=== PATIENT | female | born 1975 | race Caucasian/White ===

== ENCOUNTER → 2020-03-31 | Outpatient (CLI) | payer OTHER ==
[2020-03-31 13:58] VITALS: BP 155/89; PULSE 80; RESP 16; TEMP 98.2; BMI 38.9
--- NOTE | 2020-03-31 14:28 | P.HPBAR ---
Bariatric H&P - History & Physicial H&P Date: 03/31/20 History & Physicial: Visit/CC: Initial Visit Patient initial contact: Initial weight: 104.411 kg Initial weight in pounds: 230.19 Height: 5 ft 4.5 in Initial BMI: 38.9 Last weight: Current weight: 104.411 kg Current weight in pounds: 230.19 Current BMI: 38.9 [place] body weight (based on NIH guidelines): 55.565 kg Excess body weight loss: 0.0% The patient is a 44 year-old F who presents for Bariatric Assessment. Patient presents today for sleeve gastrectomy consultation. She has had lifetime problems obesity. Patient is an excellent understanding of sleeve gastrectomy. She understood the risks and benefits of the procedure. Past Medical History Smoking Status: Current every day smoker Surgical - Exam Vital Signs Temp Pulse Resp BP 98.2 F 80 16 155/89 03/31/20 13:54 03/31/20 13:54 03/31/20 13:54 03/31/20 13:54 - General well developed, well nourished, no distress - Eyes PERRL - ENT normal pinna - Neck no masses - Respiratory normal expansion - Cardiovascular Rhythm: regular - Abdomen Abdomen: soft, non tender Bariatric Assessment & Plan Plan: Morbid obesity. Patient is scheduled for EGD. She'll follow-up in clinic after this is performed. Bariatric Checklist Checklist: Plan: Checklist: EGD: 1. Hiatal hernia: 2. H. Pylori: HgbA1c: Vitamin D: Smoking: Primary care physician referral: Psychiatry clearance: Cardiology clearance: Sleep study: Diet journal: VTE risk score: VTE risk level: Rehab needs at discharge:
== END | disposition home or self-care (01) ==
LOC: BARWHC3 13:30
PROVIDERS: ATTEND Surgery
DX: E66.01 Morbid (severe) obesity due to excess calories (principal); Z68.38 Body mass index [BMI] 38.0-38.9, adult
CPT/HCPCS: 99201

== ENCOUNTER 2020-05-22 15:02 | Emergency (ER) | payer OTHER ==
[2020-05-22 15:12] VITALS: RESP 18
[2020-05-22] MEDS ORDERED: LORazepam 1 MG TAB PO STA (15:24)
--- NOTE | 2020-05-22 15:30 | ED ---
Allergic Reaction HPI - General Source: patient Mode of arrival: ambulatory Limitations: no limitations <Soraya Crowe - Last Filed: 05/22/20 21:17> <Jennifer Conley - Last Filed: 05/27/20 14:39> - General Chief complaint: Allergic Reaction Stated complaint: Allergic reaction Time Seen by Provider: 05/22/20 15:13 - History of Present Illness Initial Comments: 44-year-old female presents today for chief complaint of mood changes. Patient states she has been on hormone placement for estrogen for the past 6 months. Patient states she did believe she is on a low dose. Patient states she recently began Chantix and Adipex--within the last 3-4 weeks she states that she has noticed significant mood changes. She states she becomes angry for no reason she states she cries the drop of a hat. Patient staets she is not suicidal, homicidal she does not wish to hurt anyone. Patient was not sure if this was related to the Chantix and Adipex or the estrogen and presented to the ER for further evaluation. Patient states she does not want psychiatric evaluation. Patient denies any chest pain short of breath and leg swelling calf pain she denies any chest pain pressure she states she has no physical symptoms and is all emotional Sandi review of system negative upon arrival patient appears nontoxic no acute distress she denies any lip tongue swelling she denies any physical hives, fevers. (Soraya Crowe) - Related Data Home Medications Medication Instructions Recorded Confirmed Aspirin 81 mg PO DAILY 04/01/20 05/20/20 Fish Oil/Dha/Epa [Fish Oil 1,200 2,400 mg PO DAILY 04/01/20 05/20/20 mg Fish Oil] Acetaminophen [Tylenol] 325 - 650 mg PO DIRECTED PRN 05/20/20 05/20/20 Cetirizine HCl [Zyrtec] 10 mg PO DAILY PRN 05/20/20 05/20/20 Cholecalciferol [Vitamin D3 (25 50 mcg PO DAILY 05/20/20 05/20/20 Mcg = 1000 Iu)] Estrogens, Conjugated [Premarin] 0.45 mg PO DAILY 05/20/20 05/20/20 Mv,Calcium,Min/Iron/Folic/Vitk 1 each PO DAILY 05/20/20 05/20/20 [One-A-Day Women's Complete Tab] Phentermine HCl [Adipex-P] 37.5 mg PO DAILY 05/20/20 05/20/20 Varenicline [Chantix Starter Pack] 0.5 mg PO BID 05/20/20 05/20/20 Previous Rx's Medication Instructions Recorded ALPRAZolam [Xanax] 0.5 mg PO HS PRN 3 Days #3 tab 05/22/20 Allergies Allergy/AdvReac Type Severity Reaction Status Date / Time No Known Allergies Allergy Verified 05/22/20 15:13 Review of Systems ROS Other: All systems not noted in ROS Statement are negative. <Soraya Crowe - Last Filed: 05/22/20 21:17> ROS Other: All systems not noted in ROS Statement are negative. <Jennifer Conley - Last Filed: 05/27/20 14:39> ROS Statement: Those systems with pertinent positive or pertinent negative responses have been documented in the HPI. Past Medical History Past Medical History: GERD/Reflux Additional Past Medical History / Comment(s): Sinus problems lately. History of Any Multi-Drug Resistant Organisms: None Reported Past Surgical History: Cholecystectomy, Hysterectomy Additional Past Surgical History / Comment(s): Colonoscopy Past Anesthesia/Blood Transfusion Reactions: Previous Problems w/ Anesthesia Additional Past Anesthesia/Blood Transfusion Reaction / Comment(s): Took longer to awaken, grabbing at IV and O2 w/ last surgery. Past Psychological History: No Psychological Hx Reported Smoking Status: Former smoker - Past Family History Mother Family Medical History: No Reported History <Soraya Crowe - Last Filed: 05/22/20 21:17> General Exam Limitations: no limitations <Soraya Crowe - Last Filed: 05/22/20 21:17> - General Exam Comments Initial Comments: General: The patient is awake and alert, in no distress, and does not appear acutely ill. Eye: Pupils are equal, round and reactive to light, extra-ocular movements are intact. No nystagmus. There is normal conjunctiva bilaterally. No signs of icterus. Ears, nose, mouth and throat: There are moist mucous membranes and no oral lesions. No lip tongue swelling Neck: The neck is supple, there is no tenderness or JVD. Cardiovascular: There is a regular rate and rhythm. No murmur, rub or gallop is appreciated. Respiratory: Lungs are clear to auscultation, respirations are non-labored, breath sounds are equal. No wheezes, stridor, rales, or rhonchi. Gastrointestinal: Soft, non-distended, non-tender abdomen without masses or organomegaly noted. There is no rebound or guarding present. Musculoskeletal: Normal ROM, no tenderness. Strength 5/5. Sensation intact. Pulses equal bilaterally 2+. Neurological: A&O x 3. CN II-XII intact, There are no obvious motor or sensory deficits. Coordination appears grossly intact. Speech is normal. Skin: Skin is warm and dry and no rashes or lesions are noted. No urticaria Psychiatric: Cooperative, appropriate mood & affect, normal judgment. (Soraya Crowe) Course Vital Signs 05/22/20 05/22/20 15:08 16:30 Temperature 98.7 F 98 F Pulse Rate 94 83 Respiratory 18 18 Rate Blood Pressure 131/91 136/99 O2 Sat by Pulse 99 97 Oximetry Medical Decision Making <Soraya Crowe - Last Filed: 05/22/20 21:17> <Jennifer Conley - Last Filed: 05/27/20 14:39> - Medical Decision Making Patient presenting for emotional reaction from medications. No signs of anaphylaxis no urticaria no lip tongue swelling. I recommended discontinue Chantix as well as Adipex. Patient is to discuss discontinuation of estrogen with her OSTEOLOGY TEACHER on Tuesday or changing to a possible topical regimen patient otherwise denies suicidal or homicidal ideation she does not appear acutely psychotic she refuses psychiatric evaluation. Patient is provided anxiolytics and is agreeable to discharge at this time> Case discussed with Dr. Conley who is agreeable to this care plan. (Soraya Crowe) I was available for consultation in the emergency department. The history and physical exam were done by the midlevel provider. I was consulted for this patients care. I reviewed the case with the midlevel provider and based on their presentation of the patient, I agree with the assessment, medical decision making and plan of care as documented. Chart was dictated using [employer] dictation software. Attempts were made to correct any dictation errors however some typographical errors may persist. Patient was seen during a national state of emergency due to the Covid-19 pandemic. (Jennifer Conley) Disposition Is patient prescribed a controlled substance at d/c from ED?: No Time of Disposition: 15:30 <JevongraceSoraya Graeme - Last Filed: 05/22/20 21:17> <DevaughncharlieJennifer Chuy - Last Filed: 05/27/20 14:39> Clinical Impression: Mood changes Disposition: HOME SELF-CARE Condition: Good Instructions (If sedation given, give patient instructions): Anxiety (ED) Additional Instructions: Please use medication as discussed. Please follow-up with family doctor in the next 2 days, discontinue chantix and the adipex please. Discussed changing estrogen replacement therapy with Dr. Galindo on Tuesday call office first thing. Return for homicidal, suicidal ideations or increased mood changes as discussed. Please return to emergency room if the symptoms increase or worsen or for any other concerns. Prescriptions: ALPRAZolam [Xanax] 0.5 mg PO HS PRN 3 Days #3 tab PRN Reason: Anxiety Referrals: Enrike Dugan MD [Primary Care Provider] - 1-2 days Martinez Galindo DO [REFERRING] - 1-2 days
[2020-05-22 16:31] VITALS: BP 136/99; PULSE 83; TEMP 98
== END 2020-05-22 16:30 | disposition home or self-care (01) ==
LOC: EC 15:02
DX: R45.86 Emotional lability (principal); T50.5X5A Adverse effect of appetite depressants, initial encounter; T44.995A Adverse effect of other drug primarily affecting the autonomic nervous system, initial encounter; Z87.891 Personal history of nicotine dependence; Z79.890 Hormone replacement therapy; F39 Unspecified mood [affective] disorder
CPT/HCPCS: 99283

== ENCOUNTER → 2020-12-29 | Outpatient (CLI) | payer BC, OTHER ==
[2020-12-29 15:23] VITALS: BP 142/87; PULSE 72; TEMP 98.2; BMI 45.8
[2020-12-29 15:54] LABS: HCT 39.6 % (34.0-46.0); MCH 30.6 pg (25.0-35.0); MCHC 32.8 g/dL (31.0-37.0); MCV 93.4 fL (80.0-100.0); Mean Platelet Volume 7.9; Platelet Count 198 k/uL (150-450); RBC 4.24 m/uL (3.80-5.40); RDW 12.3 % (11.5-15.5); WBC 6.6 k/uL (3.8-10.6)
--- NOTE | 2020-12-29 16:22 | P.HPBAR ---
Bariatric H&P - History & Physicial H&P Date: 12/29/20 History & Physicial: Visit/CC: new patient visit Patient initial contact: Initial weight: 104.411 kg Initial weight in pounds: 230.19 Height: 5 ft Initial BMI: 44.9 Last weight: Current weight: 106.594 kg Current weight in pounds: 235.00 Current BMI: 45.8 [place] body weight (based on NIH guidelines): 45.359 kg Excess body weight loss: The patient is a 45 year-old F who presents for Bariatric Assessment. Patient presents today for a surgical consultation. She is interested sleeve gastric. Patient presents BMI 46. She has an excellent understanding significantly. Past Medical History Past Medical History: GERD/Reflux Additional Past Medical History / Comment(s): Sinus problems lately. History of Any Multi-Drug Resistant Organisms: None Reported Past Surgical History: Cholecystectomy, Hysterectomy Additional Past Surgical History / Comment(s): Colonoscopy Past Anesthesia/Blood Transfusion Reactions: Previous Problems w/ Anesthesia Additional Past Anesthesia/Blood Transfusion Reaction / Comm: Took longer to awaken, grabbing at IV and O2 w/ last surgery. Past Psychological History: No Psychological Hx Reported Smoking Status: Current some day smoker Past Alcohol Use History: Occasional Additional Past Alcohol Use History / Comment(s): Quit smoking 04/28/20, began at age 16, was 1 pack per wk avg. Drinks 6-12 drinks on weekends. Past Drug Use History: None Reported - Past Family History Mother Family Medical History: No Reported History Surgical - Exam Vital Signs Temp Pulse BP 98.2 F 72 142/87 12/29/20 15:20 12/29/20 15:20 12/29/20 15:20 - General well developed, well nourished, no distress - Eyes PERRL - ENT normal pinna - Neck no masses - Respiratory normal expansion - Cardiovascular Rhythm: regular - Abdomen Abdomen: soft, non tender Results - Labs 12/29/20 15:41 Bariatric Assessment & Plan Plan: RBC. Patient's BMI is 46. Patient was scheduled for EGD. Bariatric Checklist Checklist: Plan: Checklist: EGD: 1. Hiatal hernia: 2. H. Pylori: HgbA1c: Vitamin D: Smoking: Primary care physician referral: Psychiatry clearance: Cardiology clearance: Sleep study: Diet journal: VTE risk score: VTE risk level: Rehab needs at discharge:
[2020-12-30 18:28] LABS: ALT 36 U/L (8-44); AST 22 U/L (13-35); African American GFR (CKD) 141.1 (60.0-200.0); Albumin 4.3 g/dL (3.8-4.9); Albumin/Globulin Ratio 2.03 (1.60-3.17); Alkaline Phosphatase 118 U/L (41-126); BUN/Creat Ratio 31.93 Ratio (12.00-20.00); Blood Urea Nitrogen 14.4 mg/dL (9.0-27.0); Calcium 9.9 mg/dL (8.7-10.3); Carbon Dioxide 20.2 mmol/L (21.6-31.8); Chloride 105 mmol/L (96-109); Globulin 2.1 g/dL (1.6-3.3); Glucose 118 mg/dL (70-110); Non-African American GFR(CKD) 121.8 (60.0-200.0); Potassium 4.6 mmol/L (3.5-5.5); Sodium 143 mmol/L (135-145); Total Bilirubin <0.20 mg/dL (0.30-1.20); Total Protein 6.4 g/dL (6.2-8.2)
== END ==
LOC: BARWHC3 14:43
PROVIDERS: ATTEND Surgery
DX: Z01.818 Encounter for other preprocedural examination (principal); Z87.891 Personal history of nicotine dependence
CPT/HCPCS: 80053; 82306; 82607; 82746; 83036; 84425; 85027; 93005; 99211

== ENCOUNTER → 2021-02-02 | Outpatient (CLI) | payer BC ==
[2021-02-02 12:46] VITALS: BMI 46.8
== END ==
LOC: BARWHC3 08:41
PROVIDERS: ATTEND Surgery
DX: E66.01 Morbid (severe) obesity due to excess calories (principal); Z71.3 Dietary counseling and surveillance; Z68.42 Body mass index [BMI] 45.0-49.9, adult
CPT/HCPCS: 97804

== ENCOUNTER 2021-02-05 09:23 | Day surgery (SDC) | payer BC ==
[2021-02-02 16:19] VITALS: BMI 41.5
[~2021-02-05 09:23] MED LIST: LACTATED RINGERS 1,000 ML IV SCH; LIDOCAINE 1% (10MG/ML) FOR IV START INTRADERMA PRN
[2021-02-05 10:38] VITALS: TEMP 97.2
[2021-02-05] MEDS ORDERED: PROPOFOL 10 MG/ML 20 ML VIAL IV ONE (11:30)
--- NOTE | 2021-02-05 11:33 | P.GSHP ---
History of Present Illness H&P Date: 02/05/21 Chief Complaint: GERD, morbid obesity This is a 41-year-old female who presents today for EGD. She's had issues with GERD. She is undergoing workup for sleeve gastrectomy Past Medical History Past Medical History: GERD/Reflux, Hyperlipidemia Additional Past Medical History / Comment(s): Sinus problems occasionally. Acid reflux resolved since gallbladder taken out. History of Any Multi-Drug Resistant Organisms: None Reported Past Surgical History: Cholecystectomy, Hysterectomy Additional Past Surgical History / Comment(s): Colonoscopy. Past Anesthesia/Blood Transfusion Reactions: Previous Problems w/ Anesthesia Additional Past Anesthesia/Blood Transfusion Reaction / Comment(s): Took longer to awaken, grabbing at IV and O2 w/ last surgery. Past Psychological History: Anxiety Smoking Status: Current some day smoker Past Alcohol Use History: Occasional Additional Past Alcohol Use History / Comment(s): Quit smoking 04/28/20, began at age 16, was 1 pack per wk avg. Now smokes a cigarette some days. Drinks 6-12 drinks on weekends. Past Drug Use History: None Reported - Past Family History Mother Family Medical History: No Reported History Medications and Allergies Home Medications Medication Instructions Recorded Confirmed Type Aspirin 81 mg PO DAILY 04/01/20 02/02/21 History Fish Oil/Dha/Epa [Fish Oil 1,200 2,400 mg PO DAILY 04/01/20 02/02/21 History mg Fish Oil] Cholecalciferol [Vitamin D3 (25 50 mcg PO DAILY 05/20/20 02/02/21 History Mcg = 1000 Iu)] Mv,Calcium,Min/Iron/Folic/Vitk 1 each PO DAILY 05/20/20 02/02/21 History [One-A-Day Women's Complete Tab] Allergies Allergy/AdvReac Type Severity Reaction Status Date / Time No Known Allergies Allergy Verified 02/02/21 16:08 Surgical - Exam Vital Signs Temp Pulse Resp BP Pulse Ox 97.2 F L 73 20 144/89 97 02/05/21 10:35 02/05/21 10:35 02/05/21 10:35 02/05/21 10:35 02/05/21 10:35 - General well developed, well nourished, no distress - Eyes PERRL - ENT normal pinna - Neck no masses - Respiratory normal expansion - Cardiovascular Rhythm: regular - Abdomen Abdomen: soft, non tender Assessment and Plan Assessment: GERD, morbid obesity BMI 42. We'll perform EGD
--- NOTE | 2021-02-05 11:40 | P.OP ---
Date of Procedure: 02/05/21 Preoperative Diagnosis: GERD Morbid obesity Postoperative Diagnosis: Gastritis Morbid obesity Procedure(s) Performed: EGD Anesthesia: MAC Surgeon: Yoel Ortiz Pathology: other (Antrum) Condition: stable Disposition: PACU Description of Procedure: The patient's placed on the endoscopy table in the lateral position. She received IV sedation. The gastroscope placed oropharynx passed in the esophagus and stomach. Scope was then placed through the pylorus. The first and second portion duodenum appeared normal. Scope summer back the antrum this. Mildly inflamed. A biopsies performed. The scope was then retroflexed and the remainder of the stomach appeared normal. There is no significant hiatal hernia. The GE junction was at 40 cm per the distal esophagus appeared normal. The proximal esophagus. Normal. Scope was withdrawn for patient.
[2021-02-05 11:50] VITALS: RESP 16
[2021-02-05 12:17] VITALS: BP 133/84; PULSE 73
== END 2021-02-05 12:37 | disposition home or self-care (01) ==
LOC: ORWHC2ENDO 09:23
PROVIDERS: ATTEND Surgery
DX: K29.50 Unspecified chronic gastritis without bleeding (principal); K21.9 Gastro-esophageal reflux disease without esophagitis; E66.01 Morbid (severe) obesity due to excess calories; E78.5 Hyperlipidemia, unspecified; F17.210 Nicotine dependence, cigarettes, uncomplicated; Z68.41 Body mass index [BMI] 40.0-44.9, adult; Z79.82 Long term (current) use of aspirin; Z90.49 Acquired absence of other specified parts of digestive tract
CPT/HCPCS: 43239; 88305; J2704

== ENCOUNTER → 2021-05-04 | Outpatient (CLI) | payer BC ==
[2021-05-04 14:02] VITALS: BP 133/93; PULSE 87; TEMP 98; BMI 47.5
--- NOTE | 2021-05-04 14:31 | P.HPBAR ---
Bariatric H&P - History & Physicial H&P Date: 05/04/21 History & Physicial: Visit/CC: pre op visit Patient initial contact: Initial weight: 104.411 kg Initial weight in pounds: 230.19 Height: 5 ft Initial BMI: 44.9 Last weight: Current weight: 110.223 kg Current weight in pounds: 243.00 Current BMI: 47.5 [place] body weight (based on NIH guidelines): 45.359 kg Excess body weight loss: The patient is a 45 year-old F who presents for Bariatric Assessment. Patient presents today for presurgical consultation. She has been just recently approved for gastric sleeve procedure. She is morbidly obese. BMI is 48. Past Medical History Past Medical History: GERD/Reflux Additional Past Medical History / Comment(s): Sinus problems lately. History of Any Multi-Drug Resistant Organisms: None Reported Past Surgical History: Cholecystectomy, Hysterectomy Additional Past Surgical History / Comment(s): Colonoscopy Past Anesthesia/Blood Transfusion Reactions: Previous Problems w/ Anesthesia Additional Past Anesthesia/Blood Transfusion Reaction / Comm: Took longer to awaken, grabbing at IV and O2 w/ last surgery. Past Psychological History: No Psychological Hx Reported Smoking Status: Current some day smoker Past Alcohol Use History: Occasional Additional Past Alcohol Use History / Comment(s): Quit smoking 04/28/20, began at age 16, was 1 pack per wk avg. Drinks 6-12 drinks on weekends. Past Drug Use History: None Reported - Past Family History Mother Family Medical History: No Reported History Surgical - Exam Vital Signs Temp Pulse BP 98 F 87 133/93 05/04/21 13:56 05/04/21 13:56 05/04/21 13:56 - General well developed, well nourished, no distress - Eyes PERRL - ENT normal pinna - Neck no masses - Respiratory normal expansion - Cardiovascular Rhythm: regular - Abdomen Abdomen: soft, non tender Bariatric Assessment & Plan Plan: Morbid obesity, BMI 48. Patient is an excellent understanding of sleeve gastrectomy. She is aware the risks and benefits of the procedure. She is well-dressed gastric staple line bleeding, perforation and scarring. All questions were answered. Bariatric Checklist Checklist: Plan: Checklist: EGD: 1. Hiatal hernia: 2. H. Pylori: HgbA1c: Vitamin D: Smoking: Primary care physician referral: Psychiatry clearance: Cardiology clearance: Sleep study: Diet journal: VTE risk score: VTE risk level: Rehab needs at discharge:
== END ==
LOC: BARWHC3 13:09
PROVIDERS: ATTEND Surgery
DX: E66.01 Morbid (severe) obesity due to excess calories (principal); F17.210 Nicotine dependence, cigarettes, uncomplicated; Z68.42 Body mass index [BMI] 45.0-49.9, adult
CPT/HCPCS: 99211

== ENCOUNTER 2021-05-18 07:39 | Observation (INO) | payer BC ==
[~2021-05-18 07:39] MED LIST changes: +ENOXAPARIN 40 MG/0.4 ML SYRINGE SQ PRN; -LACTATED RINGERS 1,000 ML IV SCH; -LIDOCAINE 1% (10MG/ML) FOR IV START INTRADERMA PRN
[2021-05-18] MEDS ORDERED: ONDANSETRON 4 MG/2 ML VIAL IVP ONE (08:12)
[2021-05-18] MEDS ORDERED: LIDOCAINE 1% (10MG/ML) FOR IV START INTRADERMA PRN (08:12)
[2021-05-18] MEDS ORDERED: DEXAMETHASONE SOD PHOSPHATE 4 MG/ML 1 ML VIAL IV ONE (08:12)
[2021-05-18] MEDS ORDERED: SCOPOLAMINE 1.5MG/72HR PATCH TRANSDERM ONE (08:12)
[2021-05-18] MEDS ORDERED: LACTATED RINGERS 1,000 ML IV ONE ×2 (08:28→10:19)
[2021-05-18] MEDS ORDERED: MIDAZOLAM 2 MG/2 ML VIAL IVP ONE (08:35)
--- NOTE | 2021-05-18 09:16 | P.GSHP ---
History of Present Illness H&P Date: 05/18/21 Chief Complaint: Morbid obesity This is a 45-year-old female who presents today for sleeve gastrectomy. Patient has a lifetime problems morbid obesity. BMI is 39. Patient is aware the risks of surgery including conversion to the open procedure and injury to the stomach liver or spleen. He also aware the risk of gastric staple line disruption bleeding and scarring. Past Medical History Past Medical History: GERD/Reflux, Hyperlipidemia Additional Past Medical History / Comment(s): Sinus problems, History of Any Multi-Drug Resistant Organisms: None Reported Past Surgical History: Cholecystectomy, Hysterectomy Additional Past Surgical History / Comment(s): Colonoscopy Past Anesthesia/Blood Transfusion Reactions: Previous Problems w/ Anesthesia Additional Past Anesthesia/Blood Transfusion Reaction / Comment(s): Took longer to awaken, grabbing at IV and O2 w/ last surgery. Smoking Status: Former smoker - Past Family History Mother Family Medical History: No Reported History Medications and Allergies Home Medications Medication Instructions Recorded Confirmed Type No Known Home Medications 05/13/21 05/18/21 History Allergies Allergy/AdvReac Type Severity Reaction Status Date / Time liraglutide [From Saxenda] Allergy Itching Verified 05/18/21 08:10 varenicline [From Chantix] Allergy Itching Verified 05/18/21 08:10 Surgical - Exam Vital Signs Temp Pulse Resp BP Pulse Ox 97.2 F L 77 15 136/63 97 05/18/21 08:16 05/18/21 08:16 05/18/21 08:16 05/18/21 08:16 05/18/21 08:16 - General well developed, well nourished, no distress - Eyes PERRL - ENT normal pinna - Neck no masses - Respiratory normal expansion - Cardiovascular Rhythm: regular - Abdomen Abdomen: soft, non tender Assessment and Plan Assessment: Morbid obesity. We'll perform laparoscopic sleeve gastrectomy.
[2021-05-18] MEDS ORDERED: SUCCINYLCHOLINE CHLORIDE 100 MG/5 ML SYR IV ONE (09:30)
[2021-05-18] MEDS ORDERED: MIDAZOLAM 2 MG/2 ML VIAL ONE (09:30)
[2021-05-18] MEDS ORDERED: NEOSTIGMINE 1 MG/ML 10 ML VIAL ONE (09:30)
[2021-05-18] MEDS ORDERED: LIDOCAINE 1% INJ 10MG/ML (20 ML MDV) ONE (09:30)
[2021-05-18] MEDS ORDERED: KETAMINE 10 MG/ML 20 ML VIAL ONE (09:30)
[2021-05-18] MEDS ORDERED: GLYCOPYRROLATE 0.2 MG/ML 2 ML VIAL ONE (09:30)
[2021-05-18] MEDS ORDERED: ROCURONIUM 10 MG/ML (5 ML VIAL) IV ONE (09:30)
[2021-05-18] MEDS ORDERED: PROPOFOL 10 MG/ML 20 ML VIAL IV ONE (09:30)
[2021-05-18] MEDS ORDERED: fentaNYL (PF) 50 MCG/ML 2 ML AMP ONE (09:30)
[2021-05-18] MEDS ORDERED: HYDROmorphone (PF) 1 MG/ML ONE (09:30)
[2021-05-18] MEDS ORDERED: BUPIVACAINE (PF) 0.25% 30 ML VIAL SQ ONE (10:07)
[2021-05-18] MEDS ORDERED: NALOXONE 0.4 MG/ML 1 ML VIAL IV PRN (10:52)
[2021-05-18] MEDS ORDERED: HYDROmorphone 1 MG/ML 1 ML SYRINGE IVP PRN (10:52)
--- NOTE | 2021-05-18 10:52 | P.OP ---
Date of Procedure: 05/18/21 Preoperative Diagnosis: Morbid obesity, BMI 39 Postoperative Diagnosis: Morbid obesity, BMI 39 Procedure(s) Performed: Laparoscopic sleeve gastrectomy Anesthesia: JERRICA Surgeon: Yoel Ortiz Estimated Blood Loss (ml): 5 Pathology: other (Stomach) Condition: stable Disposition: PACU Description of Procedure: The patient was placed on the operating room table in the supine position. She received general anesthesia and then was placed in dorsal lithotomy position. Her abdomen was prepped and draped in sterile fashion. The skin incision sites were anesthetized 1% local Xylocaine. And then the skin was incised with an 11 blade in the left lateral position. Using a blade less trocar under direct visualization the peritoneal cavity was entered. The abdomen was insufflated and then a 5 mm laparoscope was placed into the peritoneal cavity. A 5 mm trocar was placed in the right epigastric, and right lateral position. A 15 mm trocar was placed in the supra-umbilical position and another 5 mm trocar was placed in the left lateral position. The left lateral lobe of the liver was retracted. The stomach was visualized. The greater curvature of the stomach was then dissected using the Harmonic scissors. The dissection occurred approximately 5 cm from the pylorus to the level of the left juancarlos. There was no hiatal hernia seen. At this point a 40-Fijian bougie dilator was placed the oropharynx and passed into the esophagus and into the stomach by the COUNSELLING PSYCHOLOGIST. The sleeve gastrectomy was performed by using the powered echelon stapler with a seam guard buttress material. Sequential firings of the stapler were performed. The gastric remnant was then brought out through the 15 mm trocar site. The dilator was withdrawn. And a orogastric tube was replaced into the stomach. The stomach was insufflated with 200 mL of methylene blue normal saline. There was no evidence of extravasation. The abdomen was irrigated there is no bleeding seen. The Brandon-Prashant device was used to close the 15 mm trocar with 0 Vicryl. Skin was closed with interrupted 3-0 Monocryl sutures once the trochars withdrawn. Dermabond dressing was applied. Patient was sent to recovery in stable condition.
[2021-05-18] MEDS ORDERED: HYDROmorphone 0.5 MG/0.5 ML SYRINGE IVP ONE ×2 (11:09→11:44)
[2021-05-18] MEDS: KETOROLAC 30 MG/ML 1 ML VIAL IVP SCH ×2 (12:40→18:08)
--- NOTE | 2021-05-18 15:00 | P.CONS ---
<Jong Cervantes - Last Filed: 05/18/21 15:10> History of Present Illness - Reason for Consult Consult date: 05/18/21 - History of Present Illness History of Presenting Illness: Patient is a very pleasant 45-year-old female with past medical history of morbid obesity with BMI of 39.3 kg/m, hyperlipidemia, and GERD. Surgical history consists of hysterectomy and cholecystectomy. Patient is currently admitted under Gen. surgery team and is status post laparoscopic sleeve gastrectomy completed by Dr. Ortiz. We have been consulted to provide continued medical management throughout patient's hospitalization. Patient seen and fully evaluated upon arrival to room 460 from postop. Patient appears to be doing well. Reports mild to moderate pain. She is tolerating oral intake of ice chips. Patient denies having any headache, lightheadedness, dizziness, chest pain, palpitations, or shortness of breath. She has not had any postoperative nausea or vomiting. Patient states she has not yet urinated since surgical procedure. Patient denies being on any daily medications, she reports diet control for treatment of hyperlipidemia and GERD. Review of systems: Pertinent positives and negatives as discussed in HPI, a complete review of sy stems was performed and all other systems are negative. Physical exam: Vital signs reviewed and stable. General: Nontoxic, no distress and appears stated age. Derm: Skin warm and dry, normal coloration for ethnicity. Head: Atraumatic, normocephalic and symmetric. Eyes: EOMs intact, no lid lag, and anicteric sclera Mouth: no lip lesions, mucus membranes moist Cardiovascular: regular rate and rhythm with normal S1S2, no murmur, positive posterior tibial pulses bilaterally, and cap refill < 2 seconds. Lungs: Respirations even, regular, and unlabored on room air. Lungs CTA bilaterally, no rhonchi, no rales, no wheezing, and no accessory muscle usage. Abdominal: soft, nontender to palpation, no guarding, no appreciable organomegaly Ext: ROM intact. No gross muscle atrophy, no edema, no contractures Neuro: Speech clear, face symmetrical and CN II-XII grossly intact with no noted focal neuro deficits Psych: Alert and oriented to person, place, time, and situation. Appropriate and pleasant affect. Assessment and Plan of Care: Status post laparoscopic sleeve gastrectomy -Management per primary admitting general surgery team including pain management, DVT prophylaxis, and advancement of diet. -DVT prophylaxis currently with Lovenox 40 mg daily. -We will follow up with morning labs. GERD -GI prophylaxis with Protonix 40 mg IVP daily. Hyperlipidemia -Recommend following a heart healthy diet once cleared for diet to advance by general surgery Thank you for allowing us to participate in the care of this pleasant patient. Do not hesitate to contact us with questions. Someone can be reached from the [facility] hospitalist group all hours of the day at [phone] or via [employer]. Past Medical History Past Medical History: GERD/Reflux, Hyperlipidemia Additional Past Medical History / Comment(s): Sinus problems, History of Any Multi-Drug Resistant Organisms: None Reported Past Surgical History: Cholecystectomy, Hysterectomy Additional Past Surgical History / Comment(s): Colonoscopy Past Anesthesia/Blood Transfusion Reactions: Previous Problems w/ Anesthesia Additional Past Anesthesia/Blood Transfusion Reaction / Comm: Took longer to awaken, grabbing at IV and O2 w/ last surgery. Smoking Status: Former smoker - Past Family History Mother Family Medical History: No Reported History Medications and Allergies Home Medications Medication Instructions Recorded Confirmed Type No Known Home Medications 05/13/21 05/18/21 History Allergies Allergy/AdvReac Type Severity Reaction Status Date / Time liraglutide [From Saxenda] Allergy Itching Verified 05/18/21 08:10 varenicline [From Chantix] Allergy Itching Verified 05/18/21 08:10 Physical Exam Vitals: Vital Signs Temp Pulse Pulse Resp BP BP Pulse Ox 05/18/21 13:45 99 16 132/70 95 05/18/21 13:15 91 16 147/70 95 05/18/21 13:01 102 H 16 105/74 95 05/18/21 12:45 100 16 138/64 95 05/18/21 12:30 102 H 16 145/67 95 05/18/21 12:15 92 16 136/85 95 05/18/21 12:00 98 16 161/83 93 L 05/18/21 11:45 92 14 133/71 96 05/18/21 11:30 95 14 164/77 100 05/18/21 11:15 97 14 157/70 100 05/18/21 10:56 97.5 F L 87 14 161/70 92 L 05/18/21 08:16 97.2 F L 77 15 136/63 97 Intake and Output 05/17/21 05/18/21 05/18/21 22:59 06:59 14:59 Intake Total 1999 Output Total 10 Balance 1989 Intake: IV 1999 Output: Estimated Blood Loss 10 Other: Weight 103.8 kg <Perla Schreiber - Last Filed: 05/18/21 16:34> History of Present Illness - History of Present Illness I reviewed the documentation as provided by the MORGAN above, who is the original author of this note. I agree with the documented assessment and plan, with the following changes: None Physical Exam Osteopathic Statement: *. No significant issues noted on an osteopathic structural exam other than those noted in the History and Physical/Consult. Vitals: Vital Signs Temp Pulse Pulse Resp BP BP Pulse Ox 05/18/21 13:45 99 16 132/70 95 05/18/21 13:15 91 16 147/70 95 05/18/21 13:01 102 H 16 105/74 95 05/18/21 12:45 100 16 138/64 95 05/18/21 12:30 102 H 16 145/67 95 05/18/21 12:15 92 16 136/85 95 05/18/21 12:00 98 16 161/83 93 L 05/18/21 11:45 92 14 133/71 96 05/18/21 11:30 95 14 164/77 100 05/18/21 11:15 97 14 157/70 100 05/18/21 10:56 97.5 F L 87 14 161/70 92 L 05/18/21 08:16 97.2 F L 77 15 136/63 97 Intake and Output 05/18/21 05/18/21 05/18/21 06:59 14:59 22:59 Intake Total 1999 Output Total 10 1989 Intake: IV 1999 Output: Estimated Blood Loss 10 Other: Weight 103.8 kg
[2021-05-18] MEDS: LACTATED RINGERS 1,000 ML IV SCH (16:33)
[2021-05-18] MEDS: ALBUTEROL NEBULIZED 2.5 MG/3 ML INHALATION SCH ×3 (16:33→22:13)
[2021-05-18] MEDS: 0.9% NACL WITH KCL 20 MEQ/L 1,000 ML IV SCH ×2 (18:09→22:01)
[2021-05-19] MEDS: KETOROLAC 30 MG/ML 1 ML VIAL IVP SCH ×2 (00:08→04:47)
[2021-05-19] MEDS ORDERED: HYOSCYAMINE ORAL DROPS 1.875 MG/15 ML BOTTLE PO PRN (04:46)
[2021-05-19] MEDS: 0.9% NACL WITH KCL 20 MEQ/L 1,000 ML IV SCH ×2 (04:48→15:43)
[2021-05-19] MEDS ORDERED: ONDANSETRON 4 MG/2 ML VIAL IVP PRN (07:35)
[2021-05-19] MEDS: ENOXAPARIN 40 MG/0.4 ML SYRINGE SQ SCH (07:42)
[2021-05-19] MEDS: ALBUTEROL NEBULIZED 2.5 MG/3 ML INHALATION SCH ×4 (08:27→20:12)
[2021-05-19] MEDS ORDERED: PANTOPRAZOLE 40 MG/10 ML VIAL IV SCH (09:00)
[2021-05-19 09:07] LABS: Basophils # (A) 0.01 X 10*3/uL (0.00-0.10); Basophils % (A) 0.1 %; Eosinophils # (A) 0 X 10*3/uL (0.04-0.35); Eosinophils % (A) 0 %; Immature Grans, Automated 0.3 %; Lymphocytes # (A) 1.57 X 10*3/uL (0.90-5.00); MCH 28.5 pg (27.0-32.0); MCHC 31.6 g/dL (32.0-37.0); MCV 90.3 fL (80.0-97.0); Mean Platelet Volume 11.8 fL (9.5-12.2); Monocytes # (A) 0.54 X 10*3/uL (0.20-1.00); Monocytes % (A) 7.2 %; NRBC Per 100 WBC 0 /100 WBCS (0.0-0.0); Neutrophils # (A) 5.33 X 10*3/uL (1.80-7.70); Neutrophils % (A) 71.4 %; Platelet Count 178 X 10*3/uL (140-440); RBC 4.21 X 10*6/uL (4.10-5.20); RDW 12.5 % (11.5-14.5); WBC 7.47 X 10*3/uL (4.50-10.00)
[2021-05-19 09:21] LABS: African American GFR (CKD) 122.1 (60.0-200.0); Anion Gap 15.3 mmol/L (10.00-18.00); Blood Urea Nitrogen 8.7 mg/dL (9.0-27.0); Calcium 8.6 mg/dL (8.7-10.3); Carbon Dioxide 18.7 mmol/L (20.0-27.5); Non-African American GFR(CKD) 105.4 (60.0-200.0); Phosphorus 2.7 mg/dL (2.4-5.1); Potassium 4.6 mmol/L (3.5-5.5)
[2021-05-19 10:13] LABS: Magnesium 2.2 mg/dL (1.5-2.4)
--- NOTE | 2021-05-19 10:33 | P.PN ---
<Jong Cervantes - Last Filed: 05/19/21 17:39> Subjective Progress Note Date: 05/19/21 Hospital course: Patient is a very pleasant 45-year-old female with past medical history of morbid obesity with BMI of 39.3 kg/m, hyperlipidemia, and GERD. Surgical history consists of hysterectomy and cholecystectomy. Patient is currently admitted under Gen. surgery team and is status post laparoscopic sleeve ga strectomy completed by Dr. Ortiz. We have been consulted to provide continued medical management throughout patient's hospitalization. Physical exam: Patient was seen and fully evaluated at bedside this morning. She was sitting up in the chair at bedside and reports having blurred vision since awakening from surgical procedure. General surgery team has consulted ophthalmology and Toradol has been discontinued as an adverse effect can be blurred vision. Patient otherwise denies having any complaints. She reports tolerating clear liquid diet with no episodes of nausea or vomiting. Patient also denies having any dizziness, lightheadedness, headache, ringing in her ears, double vision, sore throat or dysphasia, chest pain or palpitations, shortness of breath, or experiencing any numbness/tingling/weakness in her extremities. Patient reports postoperative pain/discomfort has waxed and waned and is worse with movement but currently controlled. Awaiting ophthalmology to evaluate. Pupils equal and reactive with EOMs intact upon assessment. No nystagmus noted. Morning labs reviewed showing no significant abnormalities. Vital signs unremarkable. Vital signs reviewed and stable. General: Nontoxic, no distress and appears stated age. Derm: Skin warm and dry, normal coloration for ethnicity. Head: Atraumatic, normocephalic and symmetric. Eyes: EOMs intact, no lid lag, and anicteric sclera Mouth: no lip lesions, mucus membranes moist Cardiovascular: regular rate and rhythm with normal S1S2, no murmur, positive posterior tibial pulses bilaterally, and cap refill < 2 seconds. Lungs: Respirations even, regular, and unlabored on room air. Lungs CTA bilaterally, no rhonchi, no rales, no wheezing, and no accessory muscle usage. Abdominal: soft, nontender to palpation, no guarding, no appreciable organomegaly Ext: ROM intact. No gross muscle atrophy, no edema, no contractures Neuro: Speech clear, face symmetrical and CN II-XII grossly intact with no noted focal neuro deficits Psych: Alert and oriented to person, place, time, and situation. Appropriate and pleasant affect. Assessment and Plan of Care: Status post laparoscopic sleeve gastrectomy -Management per primary admitting general surgery team including pain management, DVT prophylaxis, and advancement of diet. -DVT prophylaxis currently with Lovenox 40 mg daily. -We will follow up with morning labs. GERD -GI prophylaxis with Protonix 40 mg IVP daily. Hyperlipidemia -Recommend following a heart healthy diet once cleared for diet to advance by general surgery Thank you for allowing us to participate in the care of this pleasant patient. Do not hesitate to contact us with questions. Someone can be reached from the [facility] hospitalist group all hours of the day at [phone] or via [employer]. Objective - Vital Signs Vital signs: Vital Signs Temp 99.2 F 05/19/21 08:00 Pulse 80 05/19/21 08:35 Resp 16 05/19/21 08:35 BP 130/79 05/19/21 08:00 Pulse Ox 96 05/19/21 08:27 Intake & Output 05/18/21 05/19/21 05/19/21 18:59 06:59 18:59 Intake Total 2000 Output Total 10 Balance 1989 Weight 103.8 kg Intake: IV 1999 Output: Estimated Blood Loss 10 Other: Voiding Method Toilet - Labs CBC & Chem 7: 05/19/21 04:32 05/19/21 04:32 Labs: Abnormal Lab Results - Last 24 Hours (Table) 05/19/21 05/19/21 Range/Units 04:32 04:32 MCHC 31.6 L (32.0-37.0) g/dL Eosinophils # 0 L (0.04-0.35) X 10*3/uL Carbon Dioxide 18.7 L (20.0-27.5) mmol/L BUN 8.7 L (9.0-27.0) mg/dL Calcium 8.6 L (8.7-10.3) mg/dL <Perla Schreiber - Last Filed: 05/20/21 16:23> Subjective I reviewed the documentation as provided by the MORGAN above, who is the original author of this note. I agree with the documented assessment and plan, with the following changes: None Objective - Vital Signs Vital signs: Vital Signs Temp 99.1 F 05/20/21 07:20 Pulse 90 05/20/21 12:15 Resp 16 05/20/21 10:34 BP 113/67 05/20/21 07:20 Pulse Ox 95 05/20/21 08:51 Intake & Output 05/19/21 05/20/21 05/20/21 18:59 06:59 18:59 Weight 103.8 kg Other: Voiding Method Toilet Toilet # Voids 1 5 # Bowel Movements 0 - Labs CBC & Chem 7: 05/20/21 05:07 05/20/21 05:07 Labs: Abnormal Lab Results - Last 24 Hours (Table) 05/20/21 05/20/21 Range/Units 05:07 05:07 RBC 4.02 L (4.10-5.20) X 10*6/uL Hgb 11.5 L (12.0-15.0) g/dL Hct 36.4 L (37.2-46.3) % MCHC 31.6 L (32.0-37.0) g/dL Anion Gap 9.80 L (10.00-18.00) mmol/L BUN 4.8 L (9.0-27.0) mg/dL BUN/Creatinine Ratio 8.10 L (12.00-20.00) Ratio Glucose 134 H (70-110) mg/dL ALT 46 H (8-44) U/L Total Protein 5.8 L (6.2-8.2) g/dL
[2021-05-19] MEDS: 1: MVI, ADULT NO.4 WITH VIT K 10 ML, THIAMINE 100 MG, FOLIC ACID 1 MG, POTASSIUM CHLORID IV SCH ×12 (10:45→16:08)
[2021-05-19] MEDS: HYDROcodone/APAP 15 ML SOLUTION PO PRN ×2 (10:45→16:24)
[2021-05-19] MEDS ORDERED: ARTIFICIAL TEARS-HYPROMELLOSE DROPS 15 ML BTL BOTH EYES PRN (11:30)
[2021-05-19 11:36] VITALS: BMI 39.2
[2021-05-19] MEDS: LACTATED RINGERS 1,000 ML IV SCH (12:34)
--- NOTE | 2021-05-19 15:36 | P.PN ---
Subjective Progress Note Date: 05/19/21 CHIEF COMPLAINT: Morbid obesity HISTORY OF PRESENT ILLNESS: Postop day #1 status post laparoscopic sleeve gastrectomy. Patient underwent upper GI. Results are pending. She is complaining of blurry vision. Toradol is noted to have side effect of blurry vision. Toradol discontinued. Ophthalmology has been consulted. Patient also followed by medicine service. She's currently on a bariatric clear liquid diet. Afebrile. WBC is 7.47 he will and 12 platelets 178 potassium 4.6 creatinine 0.7 magnesium 2.2 Patient seen and examined with Dr. estes PHYSICAL EXAM: VITAL SIGNS: Reviewed. GENERAL: Well-developed in no acute distress. HEENT: No sclera icterus. Extraocular movements grossly intact. Moist buccal mucosa. Head is atraumatic, normocephalic. ABDOMEN: Soft. Nondistended. NEUROLOGIC: Alert and oriented. Cranial nerves II through XII grossly intact. ASSESSMENT: 1. Morbid obesity status post laparoscopic sleeve gastrectomy PLAN: -Continue bariatric clear liquid diet -Consult ophthalmology regarding blurry vision -Discontinue Toradol -Continue pain medication as needed -Continue IV fluids -Encourage patient to ambulate -Continue GI and DVT prophylaxis Physician Corporate Legal Manager note has been reviewed by physician. Signing provider agrees with the documented findings, assessment, and plan of care. Objective - Vital Signs Vital signs: Vital Signs Temp 98 F 05/19/21 14:00 Pulse 86 05/19/21 14:00 Resp 16 05/19/21 14:00 BP 108/71 05/19/21 14:00 Pulse Ox 96 05/19/21 14:00 Intake & Output 05/18/21 05/19/21 05/19/21 18:59 06:59 18:59 Intake Total 1999 Output Total 10 Balance 1989 Weight 103.8 kg 103.8 kg Intake: IV 1999 Output: Estimated Blood Loss 10 Other: Voiding Method Toilet - Labs CBC & Chem 7: 05/19/21 04:32 05/19/21 04:32 Labs: Abnormal Lab Results - Last 24 Hours (Table) 05/19/21 05/19/21 Range/Units 04:32 04:32 MCHC 31.6 L (32.0-37.0) g/dL Eosinophils # 0 L (0.04-0.35) X 10*3/uL Carbon Dioxide 18.7 L (20.0-27.5) mmol/L BUN 8.7 L (9.0-27.0) mg/dL Calcium 8.6 L (8.7-10.3) mg/dL
--- NOTE | 2021-05-19 16:37 | FL ---
SINGLE CONTRAST UPPER GI EXAMINATION: CLINICAL HISTORY: 45-year-old female postop bariatric surgery TECHNIQUE: Single contrast exam performed with 25 ml Isovue-370 contrast. Total fluoroscopy time: 2 minutes 15 seconds. Total images: 33. FINDINGS: The patient swallowed oral contrast without difficulty or delay. Esophageal peristalsis and motility are within normal limits. There is prompt passage of contrast across the GE junction but then poolin g within the proximal aspect of the stomach. We stopped at 2 swallows as contrast accumulating to the mid chest level. There episodes of intraesophageal reflux. There are postsurgical change of the slee ve gastrectomy. There is significant narrowing along the proximal portion of the sleeve with only a t hread of contrast visualized passing distally into the mid and distal stomach. Eventual contrast seen into the proximal duodenum. There is no contrast extravasation to suggest leak. No post surgical jennyfer e air is seen. IMPRESSION: 1. Moderate to severe obstruction at the proximal sleeve with threadlike narrowing. We stopped at 2 s wallows as contrast accumulated to the mid chest level. This may be secondary to postsurgical edema. Clinical surveillance recommended. Consider repeating the study in 1 or 2 days. 2. No leak is visualized.
[2021-05-19] MEDS ORDERED: PROPARACAINE 0.5% OPHTH DROPS 15 ML BTL BOTH EYES STA (17:47)
[2021-05-19] MEDS: diphenhydrAMINE 25 MG CAP PO PRN (21:14)
--- NOTE | 2021-05-19 22:34 | P.CON ---
Consult Note - . Consult date: 05/19/21 Assessment/Plan:: HPI: This is a 45 y/o female who underwent surgery who began to experience symptoms of blurry vision, worse at near than distance. She underwent an eye examination some time in the past and denies having to use glasses. She has been uncomfortable particularly using her cell phone. She asekd for her 's reading glasses +1.50 and that has made a significant difference at near. She denied any particular discomfort following surgery, no particular discharge or other eye difficulties except for blurry near vision. There is no prior history of any eye surgeries, glaucoma suspicion, early catatracts, or macular degenerative disease. Va w/o correction 20/30 -3, OD & OS IOP: tactile, soft OU External: unremarkable OU EOM: full D&V Pupils: mild anisocoria, without APD; OD 4 mm, OS 5.5 mm Conjunctiva: white & quiet Cornea: clear OU AC: D&Q OU Iris: normal without defect OU Lens: clear OU Vitreous: clear OU Optic nerve: S/F/P w/ C:D 0.25 OU Macula: quiet OU with normal foveolar light reflex Vascular: normal 0.67 OU Peripheral: (no dilation) intact 360 A: Pharmacological cycloplegia & mydriasis:This is a 45 y/o person who is on the cusp of presbyopia. There is no known need for spectacles for some time now, however, this is patient, afer discussion with nursing staff most likely touched the scopalamine patch used for nausea following surgery and it appears may have touched the eye after placement. This was easily noted by the anisocoria, especially in dimmed light. The pupil did not constrict as would normally be expected, but there is no indication of any underlying afferent defect. Therefore, most likely scopalamine may be source of the combination of cycloplegia with mydriasis. Typical scopalamine exposure is likely to lead to 3- 5 days of the symptoms with fully expected resolution. The vision problem is likely complicated with reduced range of accommodation related to normal onset of senesce of the eye. The combination of age-related changes and pharmaceutical exposure has likely led to the onset of symptoms. P: Recommend artificial tears for eye comfort. Use larger font size on handheld screens. Use reading glasses as needed recommend follow up in the office to update for possible early/mild age-related presbyopia correcting glasses. Thank you for this interesting consultation.
[2021-05-20] MEDS ORDERED: ACETAMINOPHEN TAB 325 MG TAB PO PRN (04:06)
[2021-05-20] MEDS: HYDROcodone/APAP 15 ML SOLUTION PO PRN ×2 (04:17→12:27)
[2021-05-20] MEDS: diphenhydrAMINE 25 MG CAP PO PRN (06:21)
[2021-05-20 07:21] VITALS: BP 113/67; RESP 16; TEMP 99.1
[2021-05-20] MEDS: ALBUTEROL NEBULIZED 2.5 MG/3 ML INHALATION SCH ×2 (08:51→12:04)
[2021-05-20 09:26] LABS: Basophils # (A) 0.03 X 10*3/uL (0.00-0.10); Basophils % (A) 0.5 %; Eosinophils # (A) 0.15 X 10*3/uL (0.04-0.35); Eosinophils % (A) 2.5 %; HCT 36.4 % (37.2-46.3); HGB 11.5 g/dL (12.0-15.0); Immature Grans, Automated 0.3 %; Lymphocytes # (A) 1.25 X 10*3/uL (0.90-5.00); Lymphocytes % (A) 20.7 %; MCH 28.6 pg (27.0-32.0); MCHC 31.6 g/dL (32.0-37.0); MCV 90.5 fL (80.0-97.0); Mean Platelet Volume 11.6 fL (9.5-12.2); Monocytes # (A) 0.29 X 10*3/uL (0.20-1.00); Monocytes % (A) 4.8 %; NRBC Per 100 WBC 0 /100 WBCS (0.0-0.0); Neutrophils % (A) 71.2 %; Platelet Count 151 X 10*3/uL (140-440); RBC 4.02 X 10*6/uL (4.10-5.20); RDW 12.7 % (11.5-14.5); WBC 6.04 X 10*3/uL (4.50-10.00)
--- NOTE | 2021-05-20 09:42 | P.PN ---
<Jong Cervantes - Last Filed: 05/20/21 09:38> Subjective Progress Note Date: 05/20/21 Hospital course: Patient is a very pleasant 45-year-old female with past medical history of morbid obesity with BMI of 39.3 kg/m, hyperlipidemia, and GERD. Surgical history consists of hysterectomy and cholecystectomy. Patient is currently admitted under Gen. surgery team and is status post laparoscopic sleeve ga strectomy completed by Dr. Ortiz. We have been consulted to provide continued medical management throughout patient's hospitalization. Physical exam: Patient was seen and fully evaluated at bedside this morning. She was resting comfortably in bed. She reports feeling much better this morning. States postoperative pain is controlled. Reports that her vision has improved and after discussion with classifying machine operator yesterday states she is sure she is going to need some glasses in the future. Patient tolerating oral intake and denies having any nausea/vomiting. Morning labs and vital signs remain unremarkable. Vital signs reviewed and stable. General: Nontoxic, no distress and appears stated age. Derm: Skin warm and dry, normal coloration for ethnicity. Small laparoscopic incisions intact, no surrounding redness or drainage. Head: Atraumatic, normocephalic and symmetric. Eyes: EOMs intact, no lid lag, and anicteric sclera Mouth: no lip lesions, mucus membranes moist Cardiovascular: regular rate and rhythm with normal S1S2, no murmur, positive posterior tibial pulses bilaterally, and cap refill < 2 seconds. Lungs: Respirations even, regular, and unlabored on room air. Lungs CTA bilaterally, no rhonchi, no rales, no wheezing, and no accessory muscle usage. Abdominal: soft, nontender to palpation, no guarding, no appreciable organomegaly Ext: ROM intact. No gross muscle atrophy, no edema, no contractures Neuro: Speech clear, face symmetrical and CN II-XII grossly intact with no noted focal neuro deficits Psych: Alert and oriented to person, place, time, and situation. Appropriate and pleasant affect. Assessment and Plan of Care: Status post laparoscopic sleeve gastrectomy -Management per primary admitting general surgery team including pain management, DVT prophylaxis, and advancement of diet. -DVT prophylaxis currently with Lovenox 40 mg daily. -We will follow up with morning labs. Blurred vision, patient reports significantly improved -Ophthalmology was consulted, stating blurred vision and likely secondary to early/mild age-related presbyopia along with pharmacological cycloplegia and mydriasis. Self Sealing Fuel Tank Repairer recommending patient to follow up outpatient for corrective glasses. GERD -GI prophylaxis with Protonix 40 mg IVP daily. Hyperlipidemia -Recommend following a heart healthy diet once cleared for diet to advance by general surgery Thank you for allowing us to participate in the care of this pleasant patient. Do not hesitate to contact us with questions. Someone can be reached from the [facility] hospitalist group all hours of the day at [phone] or via perfect serve. Objective - Vital Signs Vital signs: Vital Signs Temp 99.1 F 05/20/21 07:20 Pulse 75 05/20/21 09:10 Resp 16 05/20/21 07:20 BP 113/67 05/20/21 07:20 Pulse Ox 95 05/20/21 08:51 Intake & Output 05/19/21 05/20/21 05/20/21 18:59 06:59 18:59 Weight 103.8 kg Other: Voiding Method Toilet # Voids 1 5 # Bowel Movements 0 - Labs CBC & Chem 7: 05/20/21 05:07 05/19/21 04:32 Labs: Abnormal Lab Results - Last 24 Hours (Table) 05/20/21 Range/Units 05:07 RBC 4.02 L (4.10-5.20) X 10*6/uL Hgb 11.5 L (12.0-15.0) g/dL Hct 36.4 L (37.2-46.3) % MCHC 31.6 L (32.0-37.0) g/dL <Perla Schreiber - Last Filed: 05/20/21 16:23> Subjective I reviewed the documentation as provided by the MORGAN above, who is the original author of this note. I agree with the documented assessment and plan, with the following changes: None Objective - Vital Signs Vital signs: Vital Signs Temp 99.1 F 05/20/21 07:20 Pulse 90 05/20/21 12:15 Resp 16 05/20/21 10:34 BP 113/67 05/20/21 07:20 Pulse Ox 95 05/20/21 08:51 Intake & Output 05/19/21 05/20/21 05/20/21 18:59 06:59 18:59 Weight 103.8 kg Other: Voiding Method Toilet Toilet # Voids 1 5 # Bowel Movements 0 - Labs CBC & Chem 7: 05/20/21 05:07 05/20/21 05:07 Labs: Abnormal Lab Results - Last 24 Hours (Table) 05/20/21 05/20/21 Range/Units 05:07 05:07 RBC 4.02 L (4.10-5.20) X 10*6/uL Hgb 11.5 L (12.0-15.0) g/dL Hct 36.4 L (37.2-46.3) % MCHC 31.6 L (32.0-37.0) g/dL Anion Gap 9.80 L (10.00-18.00) mmol/L BUN 4.8 L (9.0-27.0) mg/dL BUN/Creatinine Ratio 8.10 L (12.00-20.00) Ratio Glucose 134 H (70-110) mg/dL ALT 46 H (8-44) U/L Total Protein 5.8 L (6.2-8.2) g/dL
[2021-05-20 09:49] LABS: African American GFR (CKD) 129.2 (60.0-200.0); Albumin 3.9 g/dL (3.8-4.9); Albumin/Globulin Ratio 2.1 (1.60-3.17); Anion Gap 9.8 mmol/L (10.00-18.00); BUN/Creat Ratio 8.1 Ratio (12.00-20.00); Blood Urea Nitrogen 4.8 mg/dL (9.0-27.0); Carbon Dioxide 22.8 mmol/L (20.0-27.5); Globulin 1.9 g/dL (1.6-3.3); Non-African American GFR(CKD) 111.5 (60.0-200.0); Potassium 4.1 mmol/L (3.5-5.5); Total Bilirubin 0.4 mg/dL (0.30-1.20); Total Protein 5.8 g/dL (6.2-8.2)
[2021-05-20] MEDS: ENOXAPARIN 40 MG/0.4 ML SYRINGE SQ SCH (10:16)
--- NOTE | 2021-05-20 10:52 | P.DS ---
Providers Date of admission: 05/18/21 23:54 Expected date of discharge: 05/20/21 Attending physician: Yoel Ortiz Consults: 05/18/21 10:52 Consult Physician Routine Consulting Provider: Antoinette Nuñez Consult Reason/Comments: Medical management Do you want consulting provider notified?: Already Contacted 05/19/21 10:38 Consult Physician Routine Consulting Provider: Boyd Rush Consult Reason/Comments: blurry vision Do you want consulting provider notified?: Yes Primary care physician: Enrike Dugan Hospital Course: Discharge diagnosis 1. Morbid obesity status post laparoscopic sleeve gastrectomy 2. Moderate to severe obstruction noted on upper GI likely due to postsurgical edema. Hospital course This is a 45-year-old female with a known history of morbid obesity. She is status post laparoscopic sleeve gastrectomy. She tolerated surgery well. Pain is controlled. Her upper GI did show moderate to severe obstruction at the proximal sleeve with threadlike narrowing. Likely due to postsurgical edema. No evidence of leak. Patient did receive IV Decadron. Denies any nausea or vomiting. She is tolerating diet. She is having flatus. She has been up and ambulating. She is afebrile. Patient also seen by ophthalmology during this admission due to vision changes. They felt that it was related to the scopolamine patch as well as some chronic changes due to age. Patient's vision has returned to normal. She's been cleared by ophthalmology and medicine service for discharge. Patient is stable for discharge. Please refer to chart for any further details. Patient seen and examined with Dr. Ortiz prior to discharge Physician Crutching [employer]or note has been reviewed by physician. Signing provider agrees with the documented findings, assessment, and plan of care. Patient Condition at Discharge: Stable Plan - Discharge Summary Discharge Rx Participant: Yes New Discharge Prescriptions: New Simethicone 40 mg/0.6 ml Drops [Mylicon Drops] 40 mg PO PCHS PRN #30 ml PRN Reason: Gas HYDROcodone/APAP 5-325MG [[place] 5-325] 1 tab PO Q6HR PRN 2 Days #5 tab PRN Reason: Pain bisacodyL [Dulcolax] 5 mg PO DAILY PRN #10 tab PRN Reason: Constipation Omeprazole [PriLOSEC] 40 mg PO DAILY #30 cap Ondansetron Odt [Zofran Odt] 4 mg PO Q8HR PRN #9 tab PRN Reason: Nausea Discontinued Cephalexin [Keflex] 500 mg PO Q8HR Discharge Medication List HYDROcodone/APAP 5-325MG [[place] 5-325] 1 tab PO Q6HR PRN 2 Days #5 tab 05/20/21 [Rx] Omeprazole [PriLOSEC] 40 mg PO DAILY #30 cap 05/20/21 [Rx] Ondansetron Odt [Zofran Odt] 4 mg PO Q8HR PRN #9 tab 05/20/21 [Rx] Simethicone 40 mg/0.6 ml Drops [Mylicon Drops] 40 mg PO PCHS PRN #30 ml 05/20/21 [Rx] bisacodyL [Dulcolax] 5 mg PO DAILY PRN #10 tab 05/20/21 [Rx] Follow up Appointment(s)/Referral(s): Mithcell Dugan MD [STAFF PHYSICIAN] - 1 Week Yoel Ortiz MD [STAFF PHYSICIAN] - 1 Week Patient Instructions/Handouts: *Surgery [facility] - Scopalamine Patch Instructions Activity/Diet/Wound Care/Special Instructions: Activity: As tolerated. Take breaks as needed. Diet: Heart healthy and carb consistent diet. Avoid salts, or foods with hidden salts such as canned or boxed foods and frozen dinners. Extra salt makes your heart work harder and traps the fluid in your body for longer. Special Instructions: Take all of your medications as directed and remember to keep all of your doctor's appointments and follow-up as needed. Thank you for allowing us to participate in your care, it was truly a pleasure having you for our patient!!! Please follow up outpatient with care transition coordinator as they discussed with you for eye exam secondary to early/mild age-related presbyopia correcting glasses. You may also use artificial tears for discomfort/dryness and recommend using larger font on hand-held screens and uses reading glasses as needed. No driving while taking [place] No lifting over 10 pounds You may shower. No soaking or tub baths for 2 weeks Very light activity until you are reevaluated at your follow up appointment with your surgeon Discharge Disposition: HOME SELF-CARE
[2021-05-20] MEDS: DEXAMETHASONE SOD PHOSPHATE 4 MG/ML 1 ML VIAL IVP SCH (11:58)
[2021-05-20 12:06] VITALS: PULSE 90
== END 2021-05-20 14:07 | disposition home or self-care (01) ==
LOC: OR 07:39 → 4SSUR 10:41 → OR 23:23 → 4SSUR 23:54
PROVIDERS: ADMIT Surgery; ATTEND Surgery
DX: E66.01 Morbid (severe) obesity due to excess calories (principal); Z68.39 Body mass index [BMI] 39.0-39.9, adult; K29.50 Unspecified chronic gastritis without bleeding; Z20.822 Contact with and (suspected) exposure to COVID-19; K21.9 Gastro-esophageal reflux disease without esophagitis; E78.5 Hyperlipidemia, unspecified; Z71.3 Dietary counseling and surveillance; Z79.899 Other long term (current) drug therapy; Z88.8 Allergy status to other drugs, medicaments and biological substances; Z90.49 Acquired absence of other specified parts of digestive tract; Z90.710 Acquired absence of both cervix and uterus; H57.02 Anisocoria; H57.04 Mydriasis; R60.9 Edema, unspecified; H52.4 Presbyopia; Z87.891 Personal history of nicotine dependence
CPT/HCPCS: 43775; 94640 ×4; 94760 ×3; 97161; 97165; 80051; 80053; 82310; 82565; 83735; 84100; 84520; 85025 ×2; 88307; 87635; 74240; G0378 ×3; J2250; J1100; J2710; J3411; J0690; J2405 ×2; J3480; J2001; J1650 ×3; J3010; J1885 ×2; J1170 ×2; J0330; J2704; C9113; Q9967; J1790

== ENCOUNTER → 2021-05-22 | Outpatient (CLI) | payer BC ==
[2021-05-22 10:22] VITALS: BP 138/86; PULSE 86; TEMP 98; BMI 37.8
== END ==
LOC: BARWHC3 09:52
PROVIDERS: ATTEND Surgery
DX: Z09 Encounter for follow-up examination after completed treatment for conditions other than malignant neoplasm (principal); Z98.84 Bariatric surgery status; E66.01 Morbid (severe) obesity due to excess calories; Z68.37 Body mass index [BMI] 37.0-37.9, adult; Z88.8 Allergy status to other drugs, medicaments and biological substances; Z88.1 Allergy status to other antibiotic agents
CPT/HCPCS: 99211

== ENCOUNTER → 2021-05-22 | Outpatient (CLI) | payer BC ==
[2021-05-22 10:39] VITALS: BP 130/81; PULSE 83; RESP 15; TEMP 98.8
[2021-05-22] MEDS: SODIUM CHLORIDE 0.9% 1,000 ML IV SCH ×2 (10:40→11:39)
== END ==
LOC: PROCWHC3 10:30
PROVIDERS: ATTEND Surgery
DX: E86.0 Dehydration (principal); Z88.1 Allergy status to other antibiotic agents; Z88.8 Allergy status to other drugs, medicaments and biological substances
CPT/HCPCS: 96360; 96361

== ENCOUNTER → 2021-06-01 | Outpatient (CLI) | payer BC ==
[2021-06-01 14:20] VITALS: BMI 36.8
[2021-06-01 15:05] VITALS: BP 111/80; PULSE 85; TEMP 98.3
--- NOTE | 2021-06-01 15:52 | P.HPBAR ---
Bariatric H&P - History & Physicial H&P Date: 06/01/21 History & Physicial: Visit/CC: two week follow up Patient initial contact: Initial weight: 104.411 kg Initial weight in pounds: 230.19 Height: 5 ft 4 in Initial BMI: 39.4 Last weight: Current weight: 97.522 kg Current weight in pounds: 215.00 Current BMI: 36.8 [place] body weight (based on NIH guidelines): 54.431 kg Excess body weight loss: 13.7% The patient is a 45 year-old F who presents for Bariatric Assessment. Patient presents today for postoperative bariatric follow-up from gastric sleeve. She's doing quite well. She has no real complaints. Past Medical History Past Medical History: GERD/Reflux, Hyperlipidemia Additional Past Medical History / Comment(s): Sinus problems, History of Any Multi-Drug Resistant Organisms: None Reported Past Surgical History: Cholecystectomy, Hysterectomy Additional Past Surgical History / Comment(s): Colonoscopy Past Anesthesia/Blood Transfusion Reactions: Previous Problems w/ Anesthesia Additional Past Anesthesia/Blood Transfusion Reaction / Comm: Took longer to awaken, grabbing at IV and O2 w/ last surgery. Smoking Status: Former smoker - Past Family History Mother Family Medical History: No Reported History Surgical - Exam Vital Signs Temp Pulse BP 98.3 F 85 111/80 06/01/21 15:04 06/01/21 15:04 06/01/21 15:04 - General well developed, well nourished, no distress - Eyes PERRL - ENT normal pinna - Neck no masses - Cardiovascular Rhythm: regular - Abdomen Abdomen: soft, non tender Bariatric Assessment & Plan Plan: Status post sleeve gastrectomy. Patient is doing quite well. She'll follow-up in 4 weeks. Bariatric Checklist Checklist: Plan: Checklist: EGD: 1. Hiatal hernia: 2. H. Pylori: HgbA1c: Vitamin D: Smoking: Primary care physician referral: meera Psychiatry clearance: Cardiology clearance: Sleep study: Diet journal: VTE risk score: VTE risk level: Rehab needs at discharge:
== END ==
LOC: BARWHC3 13:25
PROVIDERS: ATTEND Surgery
DX: Z48.815 Encounter for surgical aftercare following surgery on the digestive system (principal); E78.5 Hyperlipidemia, unspecified; Z87.891 Personal history of nicotine dependence; Z88.8 Allergy status to other drugs, medicaments and biological substances
CPT/HCPCS: 97803; 99211

== ENCOUNTER → 2021-06-15 | Outpatient (CLI) | payer BC ==
[2021-06-15 13:13] VITALS: BP 127/79; PULSE 73; RESP 16; TEMP 99
[2021-06-15 13:50] VITALS: BMI 35.6
[2021-06-15 18:18] LABS: HCT 41.7 % (37.2-46.3); HGB 13.3 g/dL (12.0-15.0); MCH 28.4 pg (27.0-32.0); MCHC 31.9 g/dL (32.0-37.0); MCV 89.1 fL (80.0-97.0); Mean Platelet Volume 12.9 fL (9.5-12.2); NRBC Per 100 WBC 0 /100 WBCS (0.0-0.0); Platelet Count 131 X 10*3/uL (140-440); RBC 4.68 X 10*6/uL (4.10-5.20); RDW 13.1 % (11.5-14.5); WBC 4.55 X 10*3/uL (4.50-10.00)
[2021-06-15 18:55] LABS: % Iron Saturation 20.66 (12.00-45.00); Albumin 4.6 g/dL (3.8-4.9); Albumin/Globulin Ratio 2.24 (1.60-3.17); Anion Gap 17.8 mmol/L (10.00-18.00); BUN/Creat Ratio 17.22 Ratio (12.00-20.00); Blood Urea Nitrogen 11.5 mg/dL (9.0-27.0); Calcium 9.8 mg/dL (8.7-10.3); Carbon Dioxide 19.9 mmol/L (20.0-27.5); Globulin 2.1 g/dL (1.6-3.3); Magnesium 1.8 mg/dL (1.5-2.4); Potassium 4.1 mmol/L (3.5-5.5); Total Bilirubin 0.5 mg/dL (0.30-1.20); Total Protein 6.7 g/dL (6.2-8.2)
--- NOTE | 2021-06-16 11:52 | P.HPBAR ---
Bariatric H&P - History & Physicial H&P Date: 06/15/21 History & Physicial: Visit/CC: Sleeve f/u 05/18/21 Patient initial contact: Initial weight: 104.411 kg Initial weight in pounds: 230.19 Height: 5 ft 4 in Initial BMI: Last weight: Current weight: 94.347 kg Current weight in pounds: 208.00 Current BMI: 35.6 [place] body weight (based on NIH guidelines): 54.5 kg Excess body weight loss: The patient is a 45 year-old F who presents for Bariatric Assessment. Patient rents today for sleeve gastrectomy follow-up. She's had some minimal GERD. She denies any dysphagia. She's had excellent weight loss. Past Medical History Past Medical History: GERD/Reflux, Hyperlipidemia Additional Past Medical History / Comment(s): Sinus problems, History of Any Multi-Drug Resistant Organisms: None Reported Past Surgical History: Cholecystectomy, Hysterectomy Additional Past Surgical History / Comment(s): Colonoscopy Past Anesthesia/Blood Transfusion Reactions: Previous Problems w/ Anesthesia Additional Past Anesthesia/Blood Transfusion Reaction / Comm: Took longer to awaken, grabbing at IV and O2 w/ last surgery. Past Psychological History: No Psychological Hx Reported Smoking Status: Former smoker Past Alcohol Use History: Occasional Additional Past Alcohol Use History / Comment(s): Quit smoking 2020, began at age 16, was 1 pack per wk avg. Past Drug Use History: None Reported - Past Family History Mother Family Medical History: No Reported History Surgical - Exam Vital Signs Temp Pulse Resp BP 99 F 73 16 127/79 06/15/21 13:05 06/15/21 13:05 06/15/21 13:05 06/15/21 13:05 - General well developed, well nourished, no distress - Eyes PERRL - ENT normal pinna - Neck no masses, no bruits - Respiratory normal expansion - Cardiovascular Rhythm: regular - Abdomen Abdomen: soft, non tender Results - Labs 06/15/21 13:51 06/15/21 13:51 Abnormal Lab Results - Last 24 Hours (Table) 06/15/21 06/15/21 Range/Units 13:51 13:51 MCHC 31.9 L (32.0-37.0) g/dL Plt Count 131 L (140-440) X 10*3/uL MPV 12.9 H (9.5-12.2) fL Carbon Dioxide 19.9 L (20.0-27.5) mmol/L Diabetes panel 06/15/21 Range/Units 13:51 Sodium 139 (135-145) mmol/L Potassium 4.1 (3.5-5.5) mmol/L Chloride 101 (96-109) mmol/L Carbon Dioxide 19.9 L (20.0-27.5) mmol/L BUN 11.5 (9.0-27.0) mg/dL Creatinine 0.7 (0.6-1.5) mg/dL Glucose 81 (70-110) mg/dL Calcium 9.8 (8.7-10.3) mg/dL AST 28 (13-35) U/L ALT 37 (8-44) U/L Alkaline Phosphatase 90 (41-126) U/L Total Protein 6.7 (6.2-8.2) g/dL Albumin 4.6 (3.8-4.9) g/dL Thyroid panel 06/15/21 Range/Units 13:51 TSH 1.200 (0.350-5.500) uIU/mL Calcium panel 06/15/21 Range/Units 13:51 Calcium 9.8 (8.7-10.3) mg/dL Albumin 4.6 (3.8-4.9) g/dL Pituitary panel 06/15/21 Range/Units 13:51 Sodium 139 (135-145) mmol/L Potassium 4.1 (3.5-5.5) mmol/L Chloride 101 (96-109) mmol/L Carbon Dioxide 19.9 L (20.0-27.5) mmol/L BUN 11.5 (9.0-27.0) mg/dL Creatinine 0.7 (0.6-1.5) mg/dL Glucose 81 (70-110) mg/dL Calcium 9.8 (8.7-10.3) mg/dL TSH 1.200 (0.350-5.500) uIU/mL Adrenal panel 06/15/21 Range/Units 13:51 Sodium 139 (135-145) mmol/L Potassium 4.1 (3.5-5.5) mmol/L Chloride 101 (96-109) mmol/L Carbon Dioxide 19.9 L (20.0-27.5) mmol/L BUN 11.5 (9.0-27.0) mg/dL Creatinine 0.7 (0.6-1.5) mg/dL Glucose 81 (70-110) mg/dL Calcium 9.8 (8.7-10.3) mg/dL Total Bilirubin 0.50 (0.30-1.20) mg/dL AST 28 (13-35) U/L ALT 37 (8-44) U/L Alkaline Phosphatase 90 (41-126) U/L Total Protein 6.7 (6.2-8.2) g/dL Albumin 4.6 (3.8-4.9) g/dL Bariatric Assessment & Plan Plan: Status post sleeve gastrectomy. Patient's had excellent weight loss. Her GERD is minimal and will be observed. She'll follow-up in 4 weeks. Bariatric Checklist Checklist: Plan: Checklist: EGD: 1. Hiatal hernia: 2. H. Pylori: HgbA1c: Vitamin D: Smoking: Primary care physician referral: meera Psychiatry clearance: Cardiology clearance: Sleep study: Diet journal: VTE risk score: VTE risk level: Rehab needs at discharge:
[2021-06-16 12:25] LABS: Zinc, Serum 86 ug/dL (60-130)
[2021-06-17 06:19] LABS: Vitamin A 30 ug/dL (38-106)
[2021-06-18 07:04] LABS: Vit B1(Thiamine) 53 ug/L (38-122)
== END ==
LOC: BARWHC3 12:52
PROVIDERS: ATTEND Surgery
DX: Z09 Encounter for follow-up examination after completed treatment for conditions other than malignant neoplasm (principal); K21.9 Gastro-esophageal reflux disease without esophagitis; E78.5 Hyperlipidemia, unspecified; Z87.891 Personal history of nicotine dependence; Z98.84 Bariatric surgery status; Z88.8 Allergy status to other drugs, medicaments and biological substances
CPT/HCPCS: 80053; 82306; 82607; 82746; 83540; 83550; 83735; 84255; 84425; 84443; 84590; 84630; 85027; 97803; 99211

== ENCOUNTER → 2021-07-20 | Outpatient (CLI) | payer BC ==
[2021-07-20 13:43] VITALS: BP 123/90; PULSE 73; RESP 16; TEMP 98.5; BMI 32.4
--- NOTE | 2021-07-20 15:41 | P.HPBAR ---
Bariatric H&P - History & Physicial H&P Date: 07/20/21 History & Physicial: Visit/CC: sleeve f/u Patient initial contact: Initial weight: 104.411 kg Initial weight in pounds: 230.19 Height: 5 ft 4.5 in Initial BMI: 38.9 Last weight: Current weight: 87.09 kg Current weight in pounds: 192.00 Current BMI: 32.4 [place] body weight (based on NIH guidelines): 55.565 kg Excess body weight loss: 35.4% The patient is a 46 year-old F who presents for Bariatric Assessment. Patient presents today for bariatric follow-up. She's had some minimal GERD. She is otherwise doing well. Past Medical History Past Medical History: GERD/Reflux, Hyperlipidemia Additional Past Medical History / Comment(s): Sinus problems, History of Any Multi-Drug Resistant Organisms: None Reported Past Surgical History: Cholecystectomy, Hysterectomy Additional Past Surgical History / Comment(s): Colonoscopy Past Anesthesia/Blood Transfusion Reactions: Previous Problems w/ Anesthesia Additional Past Anesthesia/Blood Transfusion Reaction / Comm: Took longer to awaken, grabbing at IV and O2 w/ last surgery. Past Psychological History: No Psychological Hx Reported Smoking Status: Former smoker Past Alcohol Use History: Occasional Additional Past Alcohol Use History / Comment(s): Quit smoking 2020, began at age 16, was 1 pack per wk avg. Past Drug Use History: None Reported - Past Family History Mother Family Medical History: No Reported History Surgical - Exam Vital Signs Temp Pulse Resp BP 98.5 F 73 16 123/90 07/20/21 13:40 07/20/21 13:40 07/20/21 13:40 07/20/21 13:40 - General well developed, well nourished, no distress - Eyes PERRL - ENT normal pinna - Neck no masses - Respiratory normal expansion - Cardiovascular Rhythm: regular - Abdomen Abdomen: soft, non tender Bariatric Assessment & Plan Plan: Status post sleeve history. Patient is minimal will be observed. She'll follow-up in 4 weeks. Bariatric Checklist Checklist: Plan: Checklist: EGD: 1. Hiatal hernia: 2. H. Pylori: HgbA1c: Vitamin D: Smoking: Primary care physician referral: jovanni Psychiatry clearance: Cardiology clearance: Sleep study: Diet journal: VTE risk score: VTE risk level: Rehab needs at discharge:
== END ==
LOC: BARWHC3 12:44
PROVIDERS: ATTEND Surgery
DX: Z09 Encounter for follow-up examination after completed treatment for conditions other than malignant neoplasm (principal); K21.9 Gastro-esophageal reflux disease without esophagitis; E78.5 Hyperlipidemia, unspecified; Z87.891 Personal history of nicotine dependence; Z88.8 Allergy status to other drugs, medicaments and biological substances
CPT/HCPCS: 99211

== ENCOUNTER → 2021-07-24 | Outpatient (CLI) | payer BC ==
--- NOTE | 2021-07-24 11:19 | FL ---
EXAMINATION TYPE: FL barium swallow DATE OF EXAM: 07/24/2021 Esophagram : CLINICAL HISTORY: Dysphasia and fullness since gastric sleeve surgery 2 months ago. TECHNIQUE: Limited esophagram is performed utilizing 2 oz of EZ-paque. A total of 24 seconds of fluo roscopic time was utilized during procedure and 22 images obtained. COMPARISON: Postoperative upper GI study May 19, 2021. FINDINGS: The patient swallowed contrast without difficulty or delay. Esophageal peristalsis and mo tility are within normal limits. There is good flow of contrast along the diaphragmatic hiatus into proximal stomach and subsequent flow through proximal anastomosis into gastric sleeve. There is good flow from distal sleeve and anastomosis into pylorus and duodenal sweep. Patient remains asymptomatic . There is no evidence of contrast extravasation to suggest leak. Cholecystectomy clips are incidenta lly noted. IMPRESSION: Unremarkable study.
== END | disposition home or self-care (01) ==
LOC: RADFLMAIN 10:06
PROVIDERS: ATTEND Surgery
DX: R13.10 Dysphagia, unspecified (principal)
CPT/HCPCS: 74220

== ENCOUNTER → 2021-09-07 | Outpatient (CLI) | payer BC ==
[2021-09-07 13:42] VITALS: BP 138/87; PULSE 65; TEMP 98.1; BMI 30.4
--- NOTE | 2021-09-07 13:44 | P.HPBAR ---
Bariatric H&P - History & Physicial H&P Date: 09/07/21 History & Physicial: Visit/CC: sleeve f/u Patient initial contact: Initial weight: 104.411 kg Initial weight in pounds: 230.19 Height: 5 ft 4.5 in Initial BMI: 38.9 Last weight: Current weight: 81.647 kg Current weight in pounds: 180.00 Current BMI: 30.4 [place] body weight (based on NIH guidelines): 55.565 kg Excess body weight loss: 46.6% The patient is a 46 year-old F who presents for Bariatric Assessment. Patient presents today for sleeve gastrectomy follow-up. Her blood pressure is marginally high today. She's had some minimal GERD. Past Medical History Past Medical History: GERD/Reflux, Hyperlipidemia Additional Past Medical History / Comment(s): Sinus problems, History of Any Multi-Drug Resistant Organisms: None Reported Past Surgical History: Cholecystectomy, Hysterectomy Additional Past Surgical History / Comment(s): Colonoscopy Past Anesthesia/Blood Transfusion Reactions: Previous Problems w/ Anesthesia Additional Past Anesthesia/Blood Transfusion Reaction / Comm: Took longer to awaken, grabbing at IV and O2 w/ last surgery. Past Psychological History: No Psychological Hx Reported Smoking Status: Former smoker Past Alcohol Use History: Occasional Additional Past Alcohol Use History / Comment(s): Quit smoking 2020, began at age 16, was 1 pack per wk avg. Past Drug Use History: None Reported - Past Family History Mother Family Medical History: No Reported History Surgical - Exam Vital Signs Temp Pulse BP 98.1 F 65 138/87 09/07/21 13:38 09/07/21 13:38 09/07/21 13:38 - General well developed, well nourished, no distress - Eyes PERRL - ENT normal pinna - Respiratory normal expansion - Cardiovascular Rhythm: regular - Abdomen Abdomen: soft, non tender Bariatric Assessment & Plan Plan: Status post sleeve gastrectomy. Patient's had excellent weight loss. Her GERD is minimal and will be observed. Bariatric Checklist Checklist: Plan: Checklist: EGD: 1. Hiatal hernia: 2. H. Pylori: HgbA1c: Vitamin D: Smoking: Primary care physician referral: meera Psychiatry clearance: Cardiology clearance: Sleep study: Diet journal: VTE risk score: VTE risk level: Rehab needs at discharge:
== END ==
LOC: BARWHC3 12:52
PROVIDERS: ATTEND Surgery
DX: Z09 Encounter for follow-up examination after completed treatment for conditions other than malignant neoplasm (principal); K21.9 Gastro-esophageal reflux disease without esophagitis; Z98.84 Bariatric surgery status; E78.5 Hyperlipidemia, unspecified; Z88.8 Allergy status to other drugs, medicaments and biological substances
CPT/HCPCS: 97803; 99211

== ENCOUNTER → 2021-10-12 | Outpatient (CLI) | payer BC ==
[2021-10-12 13:32] VITALS: BP 140/85; PULSE 71; TEMP 98.7; BMI 28.3
--- NOTE | 2021-10-20 16:31 | P.HPBAR ---
Bariatric H&P - History & Physicial H&P Date: 10/12/21 History & Physicial: Visit/CC: sleeve f/u Patient initial contact: Initial weight: 104.411 kg Initial weight in pounds: 230.19 Height: 5 ft 4.5 in Initial BMI: 38.9 Last weight: Current weight: 76.204 kg Current weight in pounds: 168.00 Current BMI: 28.3 [place] body weight (based on NIH guidelines): 55.565 kg Excess body weight loss: 57.7% The patient is a 46 year-old F who presents for Bariatric Assessment. Patient resents today for bariatric follow-up. She's had some complaints of GERD and hypertension. Her current BMI is 28 Past Medical History Past Medical History: GERD/Reflux, Hyperlipidemia Additional Past Medical History / Comment(s): Sinus problems, History of Any Multi-Drug Resistant Organisms: None Reported Past Surgical History: Cholecystectomy, Hysterectomy Additional Past Surgical History / Comment(s): Colonoscopy Past Anesthesia/Blood Transfusion Reactions: Previous Problems w/ Anesthesia Additional Past Anesthesia/Blood Transfusion Reaction / Comm: Took longer to awaken, grabbing at IV and O2 w/ last surgery. Past Psychological History: No Psychological Hx Reported Smoking Status: Former smoker Past Alcohol Use History: Occasional Additional Past Alcohol Use History / Comment(s): Quit smoking 2020, began at age 16, was 1 pack per wk avg. Past Drug Use History: None Reported - Past Family History Mother Family Medical History: No Reported History Surgical - Exam Vital Signs Temp Pulse BP 98.7 F 71 140/85 10/12/21 13:28 10/12/21 13:28 10/12/21 13:28 - General well developed, well nourished, no distress - Eyes PERRL - ENT normal pinna - Neck no masses - Respiratory normal expansion - Cardiovascular Rhythm: regular - Abdomen Abdomen: soft, non tender Bariatric Assessment & Plan Plan: Resolving morbid obesity. Patient's GERD is 28. Patient was instructed to check her blood pressure with her PCP. Her GERD is minimal will be observed. Bariatric Checklist Checklist: Plan: Checklist: EGD: 1. Hiatal hernia: 2. H. Pylori: HgbA1c: Vitamin D: Smoking: [facility] Psychiatry clearance: Cardiology clearance: Sleep study: Diet journal: VTE risk score: VTE risk level: Rehab needs at discharge:
== END ==
LOC: BARWHC3 13:13
PROVIDERS: ATTEND Surgery
DX: E66.01 Morbid (severe) obesity due to excess calories (principal); I10 Essential (primary) hypertension; E78.5 Hyperlipidemia, unspecified; Z87.891 Personal history of nicotine dependence; Z68.28 Body mass index [BMI] 28.0-28.9, adult; Z88.8 Allergy status to other drugs, medicaments and biological substances
CPT/HCPCS: 99211

== ENCOUNTER → 2021-11-23 | Outpatient (CLI) | payer BC ==
[2021-11-23 14:56] VITALS: BP 121/74; PULSE 72; TEMP 99.1; BMI 26.9
[2021-11-24 01:13] LABS: HCT 37.4 % (37.2-46.3); MCH 29.4 pg (27.0-32.0); MCHC 32.1 g/dL (32.0-37.0); MCV 91.7 fL (80.0-97.0); NRBC Per 100 WBC 0 /100 WBCS (0.0-0.0); Platelet Count 142 X 10*3/uL (140-440); RBC 4.08 X 10*6/uL (4.10-5.20); RDW 13.3 % (11.5-14.5); WBC 3.82 X 10*3/uL (4.50-10.00)
[2021-11-24 02:34] LABS: % Iron Saturation 17.41 (12.00-45.00); African American GFR (CKD) 122.1 (60.0-200.0); Albumin 3.9 g/dL (3.8-4.9); Albumin/Globulin Ratio 1.67 (1.60-3.17); Anion Gap 11.9 mmol/L (10.00-18.00); BUN/Creat Ratio 14.87 Ratio (12.00-20.00); Blood Urea Nitrogen 10.2 mg/dL (9.0-27.0); Carbon Dioxide 24.1 mmol/L (20.0-27.5); Globulin 2.3 g/dL (1.6-3.3); Magnesium 2.1 mg/dL (1.5-2.4); Non-African American GFR(CKD) 105.3 (60.0-200.0); Potassium 4.3 mmol/L (3.5-5.5); Total Bilirubin 0.4 mg/dL (0.30-1.20); Total Protein 6.2 g/dL (6.2-8.2)
[2021-11-24 12:31] LABS: Zinc, Serum 60 ug/dL (60-130)
[2021-11-24 16:56] LABS: Vitamin A 35 ug/dL (38-106)
[2021-11-26 12:19] LABS: Vit B1(Thiamine) 53 ug/L (38-122)
[2021-11-26 22:48] LABS: Selenium 97 mcg/L (63-160)
--- NOTE | 2021-12-07 15:04 | P.HPBAR ---
Bariatric H&P - History & Physicial H&P Date: 11/23/21 History & Physicial: Visit/CC: sleeve f/u Patient initial contact: Initial weight: 104.411 kg Initial weight in pounds: 230.19 Height: 5 ft 4.5 in Initial BMI: 38.9 Last weight: Current weight: 72.121 kg Current weight in pounds: 159.00 Current BMI: 26.9 [place] body weight (based on NIH guidelines): 55.565 kg Excess body weight loss: 66.1% The patient is a 46 year-old F who presents for Bariatric Assessment. She presents today for bariatric follow-up. She has a history of sleeve yesterday. She's had some mild GERD. Her current weight is 159 pounds. She previously weight 168 pounds. Past Medical History Past Medical History: GERD/Reflux, Hyperlipidemia Additional Past Medical History / Comment(s): Sinus problems, History of Any Multi-Drug Resistant Organisms: None Reported Past Surgical History: Bariatric Surgery, Cholecystectomy, Hysterectomy Additional Past Surgical History / Comment(s): Colonoscopy, gastric sleeve 2021 Past Anesthesia/Blood Transfusion Reactions: Previous Problems w/ Anesthesia Additional Past Anesthesia/Blood Transfusion Reaction / Comm: Took longer to awaken, grabbing at IV and O2 w/ last surgery. Past Psychological History: No Psychological Hx Reported Smoking Status: Former smoker Past Alcohol Use History: Occasional Additional Past Alcohol Use History / Comment(s): Quit smoking 2020, began at age 16, was 1 pack per wk avg. Past Drug Use History: None Reported - Past Family History Mother Family Medical History: No Reported History Surgical - Exam Vital Signs Temp Pulse BP 99.1 F 72 121/74 11/23/21 14:54 11/23/21 14:54 11/23/21 14:54 - General well developed, well nourished, no distress - Eyes PERRL - ENT normal pinna - Neck no masses - Respiratory normal expansion - Cardiovascular Rhythm: regular - Abdomen Abdomen: soft, non tender Results - Labs 11/23/21 15:18 11/23/21 15:18 Bariatric Assessment & Plan Plan: Resolving morbid obesity. Patient's GERD is minimal and will be observed. She'll follow-up in 4 weeks. Bariatric Checklist Checklist: Plan: Checklist: EGD: 1. Hiatal hernia: 2. H. Pylori: HgbA1c: Vitamin D: Smoking: Primary care physician referral: meera Psychiatry clearance: Cardiology clearance: Sleep study: Diet journal: VTE risk score: VTE risk level: Rehab needs at discharge:
== END ==
LOC: BARWHC3 14:28
PROVIDERS: ATTEND Surgery
DX: E66.01 Morbid (severe) obesity due to excess calories (principal); E78.5 Hyperlipidemia, unspecified; Z68.26 Body mass index [BMI] 26.0-26.9, adult; K21.9 Gastro-esophageal reflux disease without esophagitis; Z98.84 Bariatric surgery status; Z87.891 Personal history of nicotine dependence; D50.8 Other iron deficiency anemias; E44.0 Moderate protein-calorie malnutrition; E55.9 Vitamin D deficiency, unspecified; T56.894A Toxic effect of other metals, undetermined, initial encounter; Z88.8 Allergy status to other drugs, medicaments and biological substances
CPT/HCPCS: 80053; 82306; 82607; 82728; 82746; 83540; 83550; 83735; 84255; 84425; 84443; 84590; 84630; 85027; 97803; 99211

== ENCOUNTER → 2022-01-04 | Outpatient (CLI) | payer BC ==
[2022-01-04 14:17] VITALS: BP 128/82; PULSE 72; TEMP 98.6; BMI 25.7
--- NOTE | 2022-01-04 14:55 | P.HPBAR ---
Bariatric H&P - History & Physicial H&P Date: 01/04/22 History & Physicial: Visit/CC: sleeve f/u Patient initial contact: Initial weight: 104.411 kg Initial weight in pounds: 230.19 Height: 5 ft 4.5 in Initial BMI: 38.9 Last weight: Current weight: 69.082 kg Current weight in pounds: 152.30 Current BMI: 25.7 [place] body weight (based on NIH guidelines): 55.565 kg Excess body weight loss: 72.3% The patient is a 46 year-old F who presents for Bariatric Assessment.patient presents today for sleeve gastrectomy follow-up. She's lost 7 pounds her last visit. She has some minimal GERD. Past Medical History Past Medical History: GERD/Reflux, Hyperlipidemia Additional Past Medical History / Comment(s): Sinus problems, History of Any Multi-Drug Resistant Organisms: None Reported Past Surgical History: Bariatric Surgery, Cholecystectomy, Hysterectomy Additional Past Surgical History / Comment(s): Colonoscopy, gastric sleeve 2021 Past Anesthesia/Blood Transfusion Reactions: Previous Problems w/ Anesthesia Additional Past Anesthesia/Blood Transfusion Reaction / Comm: Took longer to awaken, grabbing at IV and O2 w/ last surgery. Past Psychological History: No Psychological Hx Reported Smoking Status: Former smoker Past Alcohol Use History: Occasional Additional Past Alcohol Use History / Comment(s): Quit smoking 2020, began at age 16, was 1 pack per wk avg. Past Drug Use History: None Reported - Past Family History Mother Family Medical History: No Reported History Surgical - Exam Vital Signs Temp Pulse BP 98.6 F 72 128/82 01/04/22 14:14 01/04/22 14:14 01/04/22 14:14 - General well developed, well nourished, no distress - Eyes PERRL - ENT normal pinna, normal nares - Neck no masses - Respiratory normal expansion - Cardiovascular Rhythm: regular - Abdomen Abdomen: soft, non tender Bariatric Assessment & Plan Plan: improving morbid obesity. Patient's GERD is minimal and will be observed. She'll follow-up in 4 weeks. Bariatric Checklist Checklist: Plan: Checklist: EGD: 1. Hiatal hernia: 2. H. Pylori: HgbA1c: Vitamin D: Smoking: Primary care physician referral: meera Psychiatry clearance: Cardiology clearance: Sleep study: Diet journal: VTE risk score: VTE risk level: Rehab needs at discharge:
== END | disposition home or self-care (01) ==
LOC: BARWHC3 13:56
PROVIDERS: ATTEND Surgery
DX: E66.01 Morbid (severe) obesity due to excess calories (principal); Z68.38 Body mass index [BMI] 38.0-38.9, adult
CPT/HCPCS: 99211

== ENCOUNTER → 2022-02-22 | Outpatient (CLI) | payer BC ==
[2022-02-22 14:55] VITALS: BP 126/84; PULSE 85; TEMP 98.6; BMI 24.8
--- NOTE | 2022-02-22 14:56 | P.HPBAR ---
Bariatric H&P - History & Physicial H&P Date: 02/22/22 History & Physicial: Visit/CC: Patient initial contact: Initial weight: 104.411 kg Initial weight in pounds: Height: 5 ft 4.5 in Initial BMI: Last weight: Current weight: 66.678 kg Current weight in pounds: Current BMI: [place] body weight (based on NIH guidelines): Excess body weight loss: The patient is a 46 year-old F who presents for Bariatric Assessment. Patient presents today for repair to follow. She has some minimal GERD. She's doing quite well overall. Past Medical History Past Medical History: GERD/Reflux, Hyperlipidemia Additional Past Medical History / Comment(s): Sinus problems, History of Any Multi-Drug Resistant Organisms: None Reported Past Surgical History: Bariatric Surgery, Cholecystectomy, Hysterectomy Additional Past Surgical History / Comment(s): Colonoscopy, gastric sleeve 2021 Past Anesthesia/Blood Transfusion Reactions: Previous Problems w/ Anesthesia Additional Past Anesthesia/Blood Transfusion Reaction / Comm: Took longer to awaken, grabbing at IV and O2 w/ last surgery. Past Psychological History: No Psychological Hx Reported Smoking Status: Former smoker Past Alcohol Use History: Occasional Additional Past Alcohol Use History / Comment(s): Quit smoking 2020, began at age 16, was 1 pack per wk avg. Past Drug Use History: None Reported - Past Family History Mother Family Medical History: No Reported History Surgical - Exam - General well developed, well nourished, no distress - Eyes PERRL - ENT normal pinna - Neck no masses - Respiratory normal expansion - Cardiovascular Rhythm: regular - Abdomen Abdomen: soft, non tender Bariatric Assessment & Plan Plan: Status post sleeve gastrectomy. Patient's a well. Her GERD is minimal and will be observed. Bariatric Checklist Checklist: Plan: Checklist: EGD: 1. Hiatal hernia: 2. H. Pylori: HgbA1c: Vitamin D: Smoking: Primary care physician referral: meera Psychiatry clearance: Cardiology clearance: Sleep study: Diet journal: VTE risk score: VTE risk level: Rehab needs at discharge:
[2022-02-22 23:49] LABS: HGB 15.3 g/dL (12.0-15.0); MCH 29.7 pg (27.0-32.0); MCHC 32.6 g/dL (32.0-37.0); MCV 91.1 fL (80.0-97.0); Mean Platelet Volume 11.1 fL (9.5-12.2); NRBC Per 100 WBC 0 /100 WBCS (0.0-0.0); Platelet Count 156 X 10*3/uL (140-440); RBC 5.16 X 10*6/uL (4.10-5.20); RDW 13.1 % (11.5-14.5); WBC 3.84 X 10*3/uL (4.50-10.00)
[2022-02-23 01:08] LABS: % Iron Saturation 14.55 (12.00-45.00); African American GFR (CKD) 100.5 (60.0-200.0); Albumin 4.3 g/dL (3.8-4.9); Albumin/Globulin Ratio 2.19 (1.60-3.17); Anion Gap 12.2 mmol/L (10.00-18.00); BUN/Creat Ratio 14.55 Ratio (12.00-20.00); Blood Urea Nitrogen 11.9 mg/dL (9.0-27.0); Calcium 9.7 mg/dL (8.7-10.3); Carbon Dioxide 25.8 mmol/L (20.0-27.5); Magnesium 2.1 mg/dL (1.5-2.4); Non-African American GFR(CKD) 86.7 (60.0-200.0); Potassium 4.9 mmol/L (3.5-5.5); Total Bilirubin 0.4 mg/dL (0.30-1.20); Total Protein 6.3 g/dL (6.2-8.2)
[2022-02-24 15:28] LABS: Zinc, Serum 66 ug/dL (60-130)
[2022-02-25 09:16] LABS: Vitamin A 58 ug/dL (38-106)
== END ==
LOC: BARWHC3 14:43
PROVIDERS: ATTEND Surgery
DX: E66.01 Morbid (severe) obesity due to excess calories (principal); E55.9 Vitamin D deficiency, unspecified; T56.894A Toxic effect of other metals, undetermined, initial encounter; K90.9 Intestinal malabsorption, unspecified; D50.8 Other iron deficiency anemias; Z68.24 Body mass index [BMI] 24.0-24.9, adult; Z88.8 Allergy status to other drugs, medicaments and biological substances
CPT/HCPCS: 80053; 82306; 82607; 82728; 82747; 83540; 83550; 83735; 84255; 84425; 84443; 84590; 84630; 85027; 99211

== ENCOUNTER → 2022-06-07 | Outpatient (CLI) | payer BC ==
[2022-06-07 14:35] VITALS: BP 130/84; PULSE 70; TEMP 98.8; BMI 24.6
--- NOTE | 2022-06-15 10:36 | P.HPBAR ---
Bariatric H&P - History & Physicial H&P Date: 06/07/22 History & Physicial: Visit/CC: 1 year F/U Patient initial contact: Initial weight: 104.411 kg Initial weight in pounds: 230.19 Height: 5 ft 4.5 in Initial BMI: 38.9 Last weight: Current weight: 66.224 kg Current weight in pounds: 146.00 Current BMI: 24.6 [place] body weight (based on NIH guidelines): 55.565 kg Excess body weight loss: 78.1% The patient is a 46 year-old F who presents for Bariatric Assessment. Patient resents today for bariatric follow-up. She had sleeve gastrectomy prostate one year ago. She is an excellent weight loss. Her BMI is now 25. She's had minimal issues with GERD and dysphagia. Past Medical History Past Medical History: GERD/Reflux, Hyperlipidemia Additional Past Medical History / Comment(s): Sinus problems, History of Any Multi-Drug Resistant Organisms: None Reported Past Surgical History: Bariatric Surgery, Cholecystectomy, Hysterectomy Additional Past Surgical History / Comment(s): Colonoscopy, gastric sleeve 2021 Past Anesthesia/Blood Transfusion Reactions: Previous Problems w/ Anesthesia Additional Past Anesthesia/Blood Transfusion Reaction / Comm: Took longer to awaken, grabbing at IV and O2 w/ last surgery. Past Psychological History: No Psychological Hx Reported Smoking Status: Former smoker Past Alcohol Use History: Occasional Additional Past Alcohol Use History / Comment(s): Quit smoking 2020, began at age 16, was 1 pack per wk avg. Past Drug Use History: None Reported - Past Family History Mother Family Medical History: No Reported History Surgical - Exam Vital Signs Temp Pulse BP 98.8 F 70 130/84 06/07/22 14:34 06/07/22 14:34 06/07/22 14:34 - General well developed, well nourished, no distress - Eyes PERRL - ENT normal pinna - Neck no masses - Respiratory normal expansion - Cardiovascular Rhythm: regular - Abdomen Abdomen: soft, non tender Bariatric Assessment & Plan Plan: Status post sleeve gastrectomy. Patient's GERD is minimal and will be observed. She is an excellent weight loss. She'll follow-up in 3 months. Bariatric Checklist Checklist: Plan: Checklist: EGD: 1. Hiatal hernia: 2. H. Pylori: HgbA1c: Vitamin D: Smoking: Primary care physician referral: Dr. Kwan Psychiatry clearance: Cardiology clearance: Sleep study: Diet journal: VTE risk score: VTE risk level: Rehab needs at discharge:
== END ==
LOC: BARWHC3 14:11
PROVIDERS: ATTEND Surgery
DX: E66.01 Morbid (severe) obesity due to excess calories (principal); E78.5 Hyperlipidemia, unspecified; K21.9 Gastro-esophageal reflux disease without esophagitis; Z98.84 Bariatric surgery status; Z87.891 Personal history of nicotine dependence; Z88.8 Allergy status to other drugs, medicaments and biological substances; R63.4 Abnormal weight loss; Z68.24 Body mass index [BMI] 24.0-24.9, adult
CPT/HCPCS: 99211

== ENCOUNTER → 2023-06-06 | Outpatient (CLI) | payer BC ==
[2023-06-06 09:25] VITALS: BP 161/92; PULSE 86; TEMP 98.3; BMI 25.8
--- NOTE | 2023-06-06 14:27 | P.HPBAR ---
Bariatric H&P - History & Physicial H&P Date: 06/06/23 History & Physicial: Visit/CC: annual sleeve F/U Patient initial contact: Initial weight: 104.411 kg Initial weight in pounds: 230.19 Height: 5 ft 4.5 in Initial BMI: 38.9 Last weight: Current weight: 69.4 kg Current weight in pounds: 153.00 Current BMI: 25.8 [place] body weight (based on NIH guidelines): 55.565 kg Excess body weight loss: 71.6% The patient is a 47 year-old F who presents for Bariatric Assessment. Patient resents today for [place] follow-up. She has no complaints. She's had some minimal GERD. She is up 7 pounds from 1 year ago. Past Medical History Past Medical History: GERD/Reflux, Hyperlipidemia Additional Past Medical History / Comment(s): Sinus problems, History of Any Multi-Drug Resistant Organisms: None Reported Past Surgical History: Bariatric Surgery, Cholecystectomy, Hysterectomy Additional Past Surgical History / Comment(s): Colonoscopy, gastric sleeve 2021 Past Anesthesia/Blood Transfusion Reactions: Previous Problems w/ Anesthesia Additional Past Anesthesia/Blood Transfusion Reaction / Comm: Took longer to awaken, grabbing at IV and O2 w/ last surgery. Past Psychological History: No Psychological Hx Reported Smoking Status: Former smoker Past Alcohol Use History: Occasional Additional Past Alcohol Use History / Comment(s): Quit smoking 2020, began at age 16, was 1 pack per wk avg. Past Drug Use History: None Reported - Past Family History Mother Family Medical History: No Reported History Surgical - Exam Vital Signs Temp Pulse BP 98.3 F 86 161/92 06/06/23 09:09 06/06/23 09:09 06/06/23 09:09 - General well developed, well nourished, no distress - Eyes PERRL - ENT normal pinna - Neck no masses - Respiratory normal expansion - Cardiovascular Rhythm: regular - Abdomen Abdomen: soft, non tender Bariatric Assessment & Plan Plan: Resolving morbid obesity. Patient's BMI is 26. We will observe. She'll follow-up in 4 weeks. Bariatric Checklist Checklist: Plan: Checklist: EGD: 1. Hiatal hernia: 2. H. Pylori: HgbA1c: Vitamin D: Smoking: Primary care physician referral: Dr. Kwan Psychiatry clearance: Cardiology clearance: Sleep study: Diet journal: VTE risk score: VTE risk level: Rehab needs at discharge:
== END ==
LOC: BARWHC3 08:49
PROVIDERS: ATTEND Surgery
DX: K21.9 Gastro-esophageal reflux disease without esophagitis (principal); E66.01 Morbid (severe) obesity due to excess calories; E78.5 Hyperlipidemia, unspecified; Z87.891 Personal history of nicotine dependence; Z98.84 Bariatric surgery status; Z88.8 Allergy status to other drugs, medicaments and biological substances; Z68.26 Body mass index [BMI] 26.0-26.9, adult
CPT/HCPCS: 99211

== ENCOUNTER 2024-04-10 08:16 | Day surgery (SDC) | payer BC ==
[2024-04-06 10:13] VITALS: BMI 26.5
[2024-04-10] MEDS ORDERED: LIDOCAINE 1% (10MG/ML) FOR IV START INTRADERMA PRN (08:31)
[2024-04-10] MEDS ORDERED: LACTATED RINGERS 1,000 ML IV SCH (08:31)
[2024-04-10 08:48] VITALS: TEMP 97.4
[2024-04-10] MEDS: SODIUM CHLORIDE 0.9% 1,000 ML IV ONE (09:02)
[2024-04-10] MEDS: MIDAZOLAM 2 MG/2 ML VIAL IV ONE (09:06)
[2024-04-10] MEDS ORDERED: LIDOCAINE 1% INJ 10MG/ML (20 ML MDV) ONE (09:30)
[2024-04-10] MEDS ORDERED: PROPOFOL 10 MG/ML 20 ML VIAL IV ONE (09:30)
--- NOTE | 2024-04-10 09:44 | P.PCN ---
Date of Procedure: 04/10/24 Procedure(s) Performed: t BRIEF HISTORY: Patient is a 48-year-old pleasant white female scheduled for an elective colonoscopy as a part of screening for colon cancer. PROCEDURE PERFORMED: Colonoscopy with snare polypectomy. PREOPERATIVE DIAGNOSIS: Screening for colon cancer. IV sedation per Anesthesia. PROCEDURE: After informed consent was obtained, the patient, was brought into the endoscopy unit. IV sedation was administered by Anesthesia under continuous monitoring. Digital rectal examination was normal. Initially the Olympus CF-160 flexible video colonoscope was then inserted in the rectum, gradually advanced into the cecum without any difficulty. Careful examination was performed as the scope was gradually being withdrawn. Ileocecal valve and the appendiceal orifice were visualized and appeared normal. Prep was excellent. Mucosa of the cecum, ascending colon, appeared normal. The transverse colon there was a 1 cm polyp that was removed by cold snare polypectomy. Rest of the transverse colon, descending colon, sigmoid colon, and rectum appeared normal. Retroflexion was performed in the rectum and no lesions were seen. The patient tolerated the procedure well. IMPRESSION: 1 cm transverse colon polyp status post cold snare polypectomy Rest of the colon appeared normal RECOMMENDATIONS: Findings of this examination were discussed with the patient as well as her family. She was advised to follow-up with the biopsy results. If the biopsy reveals adenoma she can have repeat colonoscopy 3 years..
[2024-04-10 10:21] VITALS: BP 109/78; PULSE 56; RESP 16
== END 2024-04-10 10:20 | disposition home or self-care (01) ==
LOC: ORWHC2ENDO 08:16
PROVIDERS: ATTEND Internal Medicine Gastroenterology
DX: Z12.11 Encounter for screening for malignant neoplasm of colon (principal); D12.3 Benign neoplasm of transverse colon; F17.200 Nicotine dependence, unspecified, uncomplicated; Z90.49 Acquired absence of other specified parts of digestive tract; Z90.710 Acquired absence of both cervix and uterus; Z88.8 Allergy status to other drugs, medicaments and biological substances
CPT/HCPCS: 45385; J2250; J2003; J2704; 88305